=== PATIENT | female | born 1985 | race American Indian/Alaskan Native ===

== ENCOUNTER 2018-03-28 21:24 | Inpatient (IN) | payer OTHER ==
[2018-03-28] MEDS ORDERED: DIPRIVAN 10 MG/ML 1,000 MG/100 ML BOTTLE IV ONE (21:34)
[2018-03-28] MEDS: DIPRIVAN 10 MG/ML 1,000 MG/100 ML BOTTLE IV SCH (21:38)
[2018-03-28] MEDS ORDERED: ACTIDOSE-AQUA ONE (21:39)
--- NOTE | 2018-03-28 21:44 | Emergency Department Report ---
History of Present Illness - General Stated Complaint: OVERDOSE Time Seen by Provider: 03/28/18 21:25 Source: EMS Mode of arrival: Stretcher Limitations: Altered Mental Status - History of Present Illness Initial Comments: She is a 33-year-old female presents emergency room with a suicide attempt by overdose. History is per EMS. EMS states that the patient was found in a pharmacy parking lot where the patient had purchased a bottle of Aleve and 3 bottles a sleeping pill and took them on the parking lot. Pharmacy called the police and EMS. Patient vomited in the parking lot patient is unresponsive at this time. It is unknown what the reason for suicide attempt was. MD Complaint: intentional overdose -: Sudden Intent: suicide attempt Treatments Prior to Arrival: oxygen - Related Data Allergies Allergy/AdvReac Type Severity Reaction Status Date / Time No Known Allergies Allergy Unverified 03/28/18 21:41 ED Review of Systems ROS: Stated complaint: OVERDOSE Other details as noted in HPI Comment: Unobtainable due to pts medical conditions ED Past Medical Hx - Past Medical History Previous Medical History?: No - Surgical History Past Surgical History?: No - Family History Family history: no significant - Social History Smoking Status: Unknown if ever smoked Substance Use Type: Other ED Physical Exam - General Limitations: Altered Mental Status General appearance: lethargic - Head Head exam: Present: atraumatic, normocephalic - Eye Eye exam: Present: normal appearance, PERRL - ENT ENT exam: Present: mucous membranes dry, other (vomitus noted on the right side of the patient's face and head.) - Neck Neck exam: Present: normal inspection - Respiratory Respiratory exam: Present: normal lung sounds bilaterally, decreased breath sounds. Absent: respiratory distress - Cardiovascular Cardiovascular Exam: Present: regular rate, normal rhythm. Absent: systolic murmur, diastolic murmur, rubs, gallop - GI/Abdominal GI/Abdominal exam: Present: soft, normal bowel sounds - Extremities Exam Extremities exam: Present: normal inspection - Back Exam Back exam: Present: normal inspection - Neurological Exam Neurological exam: Present: altered - Expanded Neurological Exam Expanded Best Eye Response ([place]): (2) open to pain Best Motor Response ([place]): (5) localizes to pain Best Verbal Response ([place]): (1) no verbal response [place] Total: 8 - Skin Skin exam: Present: warm, dry, intact, normal color. Absent: rash ED Course Vital Signs 03/28/18 03/28/18 03/28/18 21:20 21:30 21:36 Pulse Rate 116 H 111 H 101 H Respiratory 17 22 35 H Rate Blood Pressure 130/84 130/84 127/88 O2 Sat by Pulse 99 100 100 Oximetry 03/28/18 03/28/18 03/28/18 21:46 22:00 22:15 Pulse Rate 102 H 98 H 93 H Respiratory 23 18 18 Rate Blood Pressure 127/88 115/73 109/74 O2 Sat by Pulse 99 100 Oximetry 03/28/18 03/28/18 03/28/18 22:30 22:35 22:45 Pulse Rate 89 89 90 Respiratory 18 18 18 Rate Blood Pressure 109/74 127/88 113/80 O2 Sat by Pulse 100 100 100 Oximetry 03/28/18 03/28/18 03/28/18 23:00 23:16 23:30 Pulse Rate 92 H 98 H 93 H Respiratory 19 22 16 Rate Blood Pressure 136/92 125/98 130/84 O2 Sat by Pulse 99 Oximetry 03/28/18 03/28/18 03/29/18 23:44 23:45 00:00 Pulse Rate 90 85 Respiratory 18 14 20 Rate Blood Pressure 121/75 135/92 O2 Sat by Pulse 100 100 59 L Oximetry 03/29/18 03/29/18 03/29/18 00:24 00:30 00:31 Pulse Rate 82 84 81 Respiratory 16 20 Rate Blood Pressure 121/75 142/97 O2 Sat by Pulse 93 98 Oximetry 03/29/18 03/29/18 03/29/18 00:45 01:00 01:15 Pulse Rate 86 83 80 Respiratory 20 20 19 Rate Blood Pressure 145/100 139/97 132/88 O2 Sat by Pulse 100 100 Oximetry 03/29/18 03/29/18 03/29/18 01:30 01:45 02:00 Pulse Rate 82 81 79 Respiratory 15 17 18 Rate Blood Pressure 132/88 116/81 119/79 O2 Sat by Pulse 78 L 100 Oximetry 03/29/18 05:04 Pulse Rate 84 Respiratory Rate Blood Pressure O2 Sat by Pulse 100 Oximetry - Reevaluation(s) Reevaluation #1: Patient seen immediately upon arrival to the hospital. Patient arrived via EMS. Patient is an overdose and minimally responsive. Per EMS patient took a bottle of Aleve and 3 bottles of sleep aid. Poison control be contacted. Patient is also hypoxic at 93%. We'll intubate patient to protect airway and for oxygenation. 03/28/18 21:15 Nurse contacted poison control. Recommendations received from poison control. Precautions received from poison control. See nurse's notes NAHID HOOKS Female : 1985 MedRec# [id number] 03/28/18 21:38 - Nurse Note by ANDRA MCKEON Acct Num: [id number] : 1985 Patient Age: 33 I spoke with Dash at poison control. He states to give 64gm of charcoal via ng tube. Watch out for the BP and HR to increase or decrease, the temp to increase. The patient is at a major risk for seizures,give benzos for seizures. Typical labs. Please call back with asa and tylenol levels. QRS greater than 500ms and QTC greater than 100ms. Initialized on 03/28/18 21:38 - END OF NOTE 03/28/18 21:30 Reevaluation #2: patient is still moving in the bed and has maxed on propofol. We'll order Versed 5 mg 1 and a Ativan drip 03/28/18 23:38 - Consultations Consultation #1: Hospitalist consulted for admission. Hospitalist to admit and assume care of patient. Patient to be admitted to the ICU team. 03/29/18 01:24 - Intubation Time Out Performed: Yes Sedative: Etomidate Paralytic: Succinylcholine Laryngoscope: fiberoptic video scope Size: 4 ET Tube Size: 7.5 Tube Secured Depth (cm): 22 Tube Secured Location: teeth Tube Placement Confirmation: visualized tube passing t, equal breath sounds bilat, no breath sounds over epi, confirmation by capnometr Patient Tolerated Procedure: well Intubation Complications: none ED Medical Decision Making - Lab Data Result diagrams: 03/28/18 22:03 03/28/18 22:03 - EKG Data -: EKG Interpreted by Tn EKG shows normal: sinus rhythm, axis, intervals, QRS complexes, ST-T waves Rate: normal - Radiology Data Radiology results: report reviewed FINAL REPORT EXAM: XR CHEST 1V AP HISTORY: ETT placement TECHNIQUE: Frontal portable view of the chest Comparison: None FINDINGS: The tip of the endotracheal tube is at the level of the clavicles. The tip of the esophagogastric tube is not included in the field of view but is well below the level of the diaphragm. There is no evidence of infiltrate, pneumothorax or pleural fluid collection. The cardiomediastinal silhouette is normal in appearance. The bony structures are unremarkable. IMPRESSION: 1. Tip of the endotracheal tube at the level of the clavicles. 2. Tip of the soft the esophagogastric tube is not included in the field of view but is well below the level of the diaphragm. 3. No evidence of an acute pulmonary process. Transcribed By: ED Dictated By: ANTHONY DAI MD Electronically Authenticated By: ANTHONY DAI MD Signed Date/Time: 03/28/182214 FINAL REPORT PROCEDURE: CT HEAD/BRAIN WO CON TECHNIQUE: Computerized tomography of the head was performed without contrast material. HISTORY: Overdose COMPARISON: No prior studies are available for comparison. FINDINGS: Skull and scalp: Normal. Paranasal sinuses: Normal. Ventricles and subarachnoid spaces: Normal. Cerebrum: No evidence of hemorrhage, acute infarction or mass . Cerebellum and brainstem: No evidence of hemorrhage, acute infarction or mass. Vasculature: Normal. Comments: None. IMPRESSION: Normal Examination Transcribed By: CO Dictated By: DARIEL SÁNCHEZ MD Electronically Authenticated By: DARIEL SÁNCHEZ MD Signed Date/Time: 03/29/18 0045 - Medical Decision Making She is a 33-year-old female that presented to the emergency room with overdose on Aleve and sleeping aids. Patient was intubated due to decreased responsiveness and in order to protect the patient's airway and provide oxygenation. Patient has been stable since. Patient will be admitted to the ICU team and the hospitalist service for further evaluation and treatment. Patient is aren't been placed on a 1013. Poison control recommendations are noted in the chart. - Differential Diagnosis od. ams. unresposive. Critical Care Time: Yes Critical care attestation.: If time is entered above; I have spent that time in minutes in the direct care of this critically ill patient, excluding procedure time. Critical Care Time: 45 minutes for cc time ED Disposition Clinical Impression: Overdose, Unresponsive Disposition: OP ADMIT IP TO THIS HOSP Is pt being admited?: Yes Does the pt Need Aspirin: No Condition: Critical Time of Disposition: 01:26
[2018-03-28] MEDS ORDERED: ACTIDOSE-AQUA PO ONE (21:55)
[2018-03-28] MEDS ORDERED: NACL 0.9% 1000 ML 1,000 ML IV ONE (21:55)
[2018-03-28] MEDS ORDERED: VASELINE LIP THERAPY TP PRN (21:58)
[2018-03-28] MEDS ORDERED: ARTIFICIAL TEARS OPHTH OINT OU PRN (21:58)
[2018-03-28] MEDS ORDERED: NACL 0.9% 500 ML IV SCH (22:00)
--- NOTE | 2018-03-28 22:16 | XRay Report ---
FINAL REPORT EXAM: XR CHEST 1V AP HISTORY: ETT placement TECHNIQUE: Frontal portable view of the chest Comparison: None FINDINGS: The tip of the endotracheal tube is at the level of the clavicles. The tip of the esophagogastric tube is not included in the field of view but is well below the level of the diaphragm. There is no evidence of infiltrate, pneumothorax or pleural fluid collection. The cardiomediastinal silhouette is normal in appearance. The bony structures are unremarkable. IMPRESSION: 1. Tip of the endotracheal tube at the level of the clavicles. 2. Tip of the soft the esophagogastric tube is not included in the field of view but is well below the level of the diaphragm. 3. No evidence of an acute pulmonary process.
[2018-03-28 22:35] LABS: Basophils % (Auto) 0.4 % (0.0-1.8); Eosinophils # (Auto) 0.3 K/mm3 (0.0-0.4); Hematocrit 33.3 % (30.3-42.9); Hemoglobin 11.1 gm/dl (10.1-14.3); Lymphocytes # (Auto) 1.2 K/mm3 (1.2-5.4); Mean Corpuscular HGB Conc 33 % (30-34); Mean Corpuscular Hemoglobin 29 pg (28-32); Mean Corpuscular Volume 87 fl (79-97); Monocytes # (Auto) 0.7 K/mm3 (0.0-0.8); Monocytes % (Auto) 5.2 % (0.0-7.3); Platelet Count 355 K/mm3 (140-440); Red Blood Count 3.85 M/mm3 (3.65-5.03); Red Cell Distribution Width 14.6 % (13.2-15.2)
[2018-03-28 22:49] LABS: HCG Qualitative,Urine Negative (Negative)
[2018-03-28 22:51] LABS: Bilirubin,Urine NEG (Negative); Blood,Urine NEG (Negative); Color,Urine Yellow (Yellow); Mucus,Urine FEW /HPF; Urobilinogen,Urine < 2.0 mg/dL (<2.0)
[2018-03-28 22:55] LABS: Alanine Aminotransferase 12 units/L (7-56); Albumin 3.9 g/dL (3.9-5); BUN/Creatinine Ratio 18; Blood Urea Nitrogen 14 mg/dL (7-17); Calcium 8.9 mg/dL (8.4-10.2); Hemolysis Index 23
[2018-03-28 22:59] LABS: Amphetamine Screen,Urine PRESUMPTIVE NEGATIVE; Benzodiazepines Screen,Urine PRESUMPTIVE NEGATIVE; Cocaine Screen,Urine PRESUMPTIVE NEGATIVE; Methadone Screen,Urine PRESUMPTIVE NEGATIVE; Opiate Screen,Urine PRESUMPTIVE NEGATIVE
[2018-03-28 23:21] LABS: Cannabinoid Screen,Urine PRESUMPTIVE POSITIVE
[2018-03-28] MEDS ORDERED: VERSED IV NR (23:45)
[2018-03-28] MEDS ORDERED: ATIVAN 100 MG in NACL 0.9% 50 ML, VIAFLEX EMPTY CONTAINER 0 ML IV SCH (23:45)
--- NOTE | 2018-03-29 00:46 | Cat Scan Report ---
FINAL REPORT PROCEDURE: CT HEAD/BRAIN WO CON TECHNIQUE: Computerized tomography of the head was performed without contrast material. HISTORY: Overdose COMPARISON: No prior studies are available for comparison. FINDINGS: Skull and scalp: Normal. Paranasal sinuses: Normal. Ventricles and subarachnoid spaces: Normal. Cerebrum: No evidence of hemorrhage, acute infarction or mass . Cerebellum and brainstem: No evidence of hemorrhage, acute infarction or mass. Vasculature: Normal. Comments: None. IMPRESSION: Normal Examination
[2018-03-29] MEDS ORDERED: TYLENOL FEEDTUBE PRN (02:25)
[2018-03-29] MEDS ORDERED: ZOFRAN IV PRN (02:25)
[2018-03-29] MEDS ORDERED: TYLENOL PR PRN (02:25)
[2018-03-29] MEDS ORDERED: SODIUM CHLORIDE FLUSH SYRINGE 10 ML IV PRN (02:25)
[2018-03-29] MEDS ORDERED: NS/KCL 20MEQ 20 MEQ/1,000 ML BAG IV SCH (03:00)
[2018-03-29] MEDS: KCL 10MEQ/100ML 10 MEQ/100 ML BAG IV SCH ×2 (03:28→06:29)
--- NOTE | 2018-03-29 03:36 | History and Physical Report ---
History of Present Illness Date of examination: 03/29/18 Date of admission: 03/29/18 Chief complaint: Drug overdose per report History of present illness: Patient is a 23-year-old -[place] female who was brought to the ED via EMS on account of drug overdose. It was reported that the patient overdosed on a bottle of aleve and 3 bottles of sleeping pills. She was found at the pharmacy parking lot unresponsive. In the ED, she was intubated for airway protection. Past History Past Medical History: other (could not be obtained because patient is intubated and sedated) Past Surgical History: Other (could not be obtained because patient is intubated and sedated) Social history: other (could not be obtained because patient is intubated and sedated) Family history: other (could not be obtained because patient is intubated and sedated) Medications and Allergies Allergies Allergy/AdvReac Type Severity Reaction Status Date / Time No Known Allergies Allergy Unverified 03/28/18 21:41 Active Meds: Active Medications Acetaminophen (Tylenol) 650 mg MS Q6H PRN PRN Reason: Fever >101 Acetaminophen (Tylenol) 650 mg FEEDTUBE Q6H PRN PRN Reason: Pain MILD(1-3)/Fever >100.5/JANG Enoxaparin Sodium (Lovenox) 40 mg SUB-Q QDAY JASON Hydrophilic Ointment (Vaseline Lip Therapy) 1 applic TP Q2HR PRN PRN Reason: Dry Lips Propofol (Diprivan 10 Mg/Ml) 1,000 mg in 100 mls @ 1.905 mls/hr IV TITR JASON; Protocol Last Titration: 03/28/18 22:10 Dose: 30 mcg/kg/min, 11.431 mls/hr Lorazepam 100 mg/ Sodium Chloride/ Miscellaneous Information 100 mls @ 1 mls/ hr IV TITR JASON; Protocol Last Titration: 03/29/18 02:09 Dose: 3 mg/hr, 3 mls/hr Potassium Chloride/Sodium Chloride (Ns/Kcl 20meq) 20 meq in 1,000 mls @ 100 mls /hr IV DIRECT JASON Potassium Chloride (Kcl 10meq/100ml) 10 meq in 100 mls @ 100 mls/hr IV Q1H JASON Stop: 03/29/18 04:59 Midazolam HCl (Versed) 5 mg IV ONCE NR Stop: 03/29/18 23:44 Multi-Ingred Cream/Lotion/Oil/Oint (Artificial Tears Ophth Oint) 1 applic OU Q4HR PRN PRN Reason: Dry Eye(s) Ondansetron HCl (Zofran) 4 mg IV Q8H PRN PRN Reason: Nausea And Vomiting Sodium Chloride (Nacl 0.9% 500 Ml) 1 ml IV DIRECT JASON Sodium Chloride (Sodium Chloride Flush Syringe 10 Ml) 10 ml IV BID JASON Sodium Chloride (Sodium Chloride Flush Syringe 10 Ml) 10 ml IV PRN PRN PRN Reason: LINE FLUSH Review of Systems ROS unobtainable: due to endotracheal tube Exam - Constitutional Vitals: Temp Pulse Resp BP Pulse Ox 79 18 119/79 100 03/29/18 02:00 03/29/18 02:00 03/29/18 02:00 03/29/18 01:45 General appearance: Present: no acute distress, other (patient is intubated and sedated) - EENT Eyes: Present: PERRL ENT: other (patient is intubated) - Neck Neck: Present: supple - Respiratory Respiratory effort: normal Respiratory: bilateral: CTA - Cardiovascular Rhythm: regular Heart Sounds: Present: S1 & S2 - Extremities Extremities: pulses symmetrical, No edema - Abdominal General gastrointestinal: Present: soft, non-tender, non-distended, normal bowel sounds - Integumentary Integumentary: Present: clear, warm, dry - Neurologic Neurologic: other (patient is intubated and sedated) Results - Labs CBC & Chem 7: 03/28/18 22:03 03/28/18 22:03 Labs: Laboratory Last Values WBC 13.5 K/mm3 (4.5-11.0) H 03/28/18 22:03 RBC 3.85 M/mm3 (3.65-5.03) 03/28/18 22:03 Hgb 11.1 gm/dl (10.1-14.3) 03/28/18 22:03 Hct 33.3 % (30.3-42.9) 03/28/18 22:03 MCV 87 fl (79-97) 03/28/18 22:03 MCH 29 pg (28-32) 03/28/18 22:03 MCHC 33 % (30-34) 03/28/18 22:03 RDW 14.6 % (13.2-15.2) 03/28/18 22:03 Plt Count 355 K/mm3 (140-440) 03/28/18 22:03 Lymph % (Auto) 9.0 % (13.4-35.0) L 03/28/18 22:03 Saline % (Auto) 5.2 % (0.0-7.3) 03/28/18 22:03 Eos % (Auto) 2.0 % (0.0-4.3) 03/28/18 22:03 Baso % (Auto) 0.4 % (0.0-1.8) 03/28/18 22:03 Lymph # 1.2 K/mm3 (1.2-5.4) 03/28/18 22:03 Saline # 0.7 K/mm3 (0.0-0.8) 03/28/18 22:03 Eos # 0.3 K/mm3 (0.0-0.4) 03/28/18 22:03 Baso # 0.0 K/mm3 (0.0-0.1) 03/28/18 22:03 Seg Neutrophils % 83.4 % (40.0-70.0) H 03/28/18 22:03 Seg Neutrophils # 11.2 K/mm3 (1.8-7.7) H 03/28/18 22:03 POC ABG pH 7.371 (7.35-7.45) 03/28/18 23:20 POC ABG pCO2 38.5 (35-45) 03/28/18 23:20 POC ABG pO2 173 (80-105) H 03/28/18 23:20 POC ABG HCO3 22.3 03/28/18 23:20 POC ABG Total CO2 23 03/28/18 23:20 POC ABG O2 Sat 100 03/28/18 23:20 POC ABG Base Excess -3 03/28/18 23:20 FiO2 30 % 03/28/18 23:20 Sodium 136 mmol/L (137-145) L 03/28/18 22:03 Potassium 3.2 mmol/L (3.6-5.0) L 03/28/18 22:03 Chloride 99.8 mmol/L (98-107) 03/28/18 22:03 Carbon Dioxide 20 mmol/L (22-30) L 03/28/18 22:03 Anion Gap 19 mmol/L 03/28/18 22:03 BUN 14 mg/dL (7-17) 03/28/18 22:03 Creatinine 0.8 mg/dL (0.7-1.2) 03/28/18 22:03 Estimated GFR > 60 ml/min 03/28/18 22:03 BUN/Creatinine Ratio 18 % 03/28/18 22:03 Glucose 86 mg/dL (65-100) 03/28/18 22:03 Calcium 8.9 mg/dL (8.4-10.2) 03/28/18 22:03 Magnesium 1.60 mg/dL (1.7-2.3) L 03/29/18 22:03 Total Bilirubin 0.20 mg/dL (0.1-1.2) 03/28/18 22:03 AST 23 units/L (5-40) 03/28/18 22:03 ALT 12 units/L (7-56) 03/28/18 22:03 Alkaline Phosphatase 83 units/L (35-129) 03/28/18 22:03 Total Protein 7.7 g/dL (6.3-8.2) 03/28/18 22:03 Albumin 3.9 g/dL (3.9-5) 03/28/18 22:03 Albumin/Globulin Ratio 1.0 % 03/28/18 22:03 Urine Color Yellow (Yellow) 03/28/18 22:31 Urine Turbidity Slightly-cloudy (Clear) 03/28/18 22:31 Urine pH 5.0 (5.0-7.0) 03/28/18 22:31 Ur Specific [place] 1.019 (1.003-1.030) 03/28/18 22:31 Urine Protein 100 mg/dl mg/dL (Negative) 03/28/18 22:31 Urine Glucose (UA) Neg mg/dL (Negative) 03/28/18 22:31 Urine Ketones 20 mg/dL (Negative) 03/28/18 22:31 Urine Blood Neg (Negative) 03/28/18 22:31 Urine Nitrite Neg (Negative) 03/28/18 22:31 Ur Reducing Substances Not Reportable 03/28/18 22:31 Urine Bilirubin Neg (Negative) 03/28/18 22:31 Urine Ictotest Not Reportable 03/28/18 22:31 Urine Urobilinogen < 2.0 mg/dL (<2.0) 03/28/18 22:31 Ur Leukocyte Esterase Neg (Negative) 03/28/18 22:31 Urine WBC (Auto) 2.0 /HPF (0.0-6.0) 03/28/18 22:31 Urine RBC (Auto) 3.0 /HPF (0.0-6.0) 03/28/18 22:31 U Epithel Cells (Auto) 1.0 /HPF (0-13.0) 03/28/18 22:31 Urine Mucus Few /HPF 03/28/18 22:31 Urine HCG, Qual Negative (Negative) 03/28/18 22:31 Salicylates < 0.3 mg/dL (2.8-20.0) L 03/28/18 22:03 Urine Opiates Screen Presumptive negative 03/28/18 22:31 Urine Methadone Screen Presumptive negative 03/28/18 22:31 Acetaminophen < 5.0 ug/mL (10.0-30.0) L 03/28/18 22:03 Ur Barbiturates Screen Presumptive negative 03/28/18 22:31 Ur Phencyclidine Scrn Presumptive negative 03/28/18 22:31 Ur Amphetamines Screen Presumptive negative 03/28/18 22:31 U Benzodiazepines Scrn Presumptive negative 03/28/18 22:31 Urine Cocaine Screen Presumptive negative 03/28/18 22:31 U Marijuana (THC) Screen Presumptive positive 03/28/18 22:31 Drugs of Abuse Note Disclamer 03/28/18 22:31 Plasma/Serum Alcohol < 0.01 % (0-0.07) 03/28/18 22:03 Assessment and Plan Assessment and plan: Acute toxic encephalopathy secondary to drug overdose -Head CT scan negative -Patient intubated for airway protection -We will monitor clinically Drug overdose with Aleve and sleeping pills -S/p activated charcoal and on benzo drip for seizure prophylaxis as recommended by poison control -Salicylates and acetaminophen levels normal -Patient placed on 1013 -She would need psych evaluation when medically stable SIRS without acute infection -Will monitor WBC level Hypokalemia and hypomagnesemia -We will replete potassium and magnesium -Will monitor levels Prophylaxis -DVT prophylaxis with Lovenox and GI prophylaxis with Protonix I spent 45 minutes providing critical care to this seriously ill patient who requires frequent reassessments of her respiratory status Disposition: Discharge will depend on clinical course
[2018-03-29] MEDS ORDERED: MAGNESIUM SULFATE 2GM/50ML 2 GM/50 ML BAG IV ONE (03:44)
[2018-03-29] MEDS: DIPRIVAN 10 MG/ML 1,000 MG/100 ML BOTTLE IV SCH ×2 (08:30→15:16)
[2018-03-29] MEDS ORDERED: QUELICIN ONE (12:00)
[2018-03-29] MEDS ORDERED: AMIDATE IV ONE (12:00)
--- NOTE | 2018-03-29 12:41 | Event Note ---
Date: 03/29/18 Patient is a 23-year-old -[place]ian female who was brought to the ED via EMS on account of drug overdose. Patient seen and examined Will cont current mx and plan as dictated in H and p.
[2018-03-29] MEDS: LOVENOX SUB-Q SCH (13:45)
[2018-03-29] MEDS: SODIUM CHLORIDE FLUSH SYRINGE 10 ML IV SCH ×2 (13:45→22:59)
[2018-03-29] MEDS: PROTONIX IV SCH ×2 (13:45→22:59)
[2018-03-29] MEDS: D5W/0.45% NACL/KCL 20 MEQ 20 MEQ/1,000 ML BAG IV SCH ×2 (13:45→22:59)
--- NOTE | 2018-03-29 14:46 | XRay Report ---
FINAL REPORT PROCEDURE: XR CHEST 1V AP TECHNIQUE: Chest radiograph anteroposterior view. CPT 50712 HISTORY: follow up respiratory failure COMPARISON: Prior chest x-ray 03/28/2018 FINDINGS: Heart: Normal size. Mediastinum/Vessels: Normal. Lungs/Pleural space: Clear. Bony thorax: No acute osseous abnormality. Life support devices: NG tube is seen directed into the left side of the stomach and appears to be in good position. Endotracheal tube also in place. The tip lies 3.7 centimeters above the venkat.. IMPRESSION: Support lines in good position. No evidence of acute cardiac or pulmonary process..
--- NOTE | 2018-03-29 16:40 | Consultation ---
History of Present Illness Consult date: 03/29/18 Requesting physician: JUAN LOVELL Reason for consult: other (Acute Respiratory Failure; Drug OD) History of present illness: PULMONARY/CCM CONSULT NOTE (Full dictation # [id number]) Please see dictated notes for full details Past History Past Medical History: other (could not be obtained because patient is intubated and sedated) Past Surgical History: Other (could not be obtained because patient is intubated and sedated) Social history: other (could not be obtained because patient is intubated and sedated) Family history: other (could not be obtained because patient is intubated and sedated) Medications and Allergies Allergies Allergy/AdvReac Type Severity Reaction Status Date / Time No Known Allergies Allergy Unverified 03/28/18 21:41 Active Meds: Active Medications Acetaminophen (Tylenol) 650 mg MN Q6H PRN PRN Reason: Fever >101 Acetaminophen (Tylenol) 650 mg FEEDTUBE Q6H PRN PRN Reason: Pain MILD(1-3)/Fever >100.5/JANG Enoxaparin Sodium (Lovenox) 40 mg SUB-Q QDAY JASON Last Admin: 03/29/18 13:45 Dose: 40 mg Hydrophilic Ointment (Vaseline Lip Therapy) 1 applic TP Q2HR PRN PRN Reason: Dry Lips Propofol (Diprivan 10 Mg/Ml) 1,000 mg in 100 mls @ 1.905 mls/hr IV TITR JASON; Protocol Last Admin: 03/29/18 15:16 Dose: 50 mcg/kg/min, 19.051 mls/hr Lorazepam 100 mg/ Sodium Chloride/ Miscellaneous Information 100 mls @ 1 mls/ hr IV TITR JASON; Protocol Last Titration: 03/29/18 15:21 Dose: 0 mg/hr, 0 mls/hr Potassium Chloride/Dextrose/Sod Cl (D5w/0.45% Nacl/Kcl 20 Meq) 20 meq in 1,000 mls @ 125 mls/hr IV DIRECT JASON Last Admin: 03/29/18 13:45 Dose: 125 mls/hr Insulin Human Regular (Humulin R) 0 units SUB-Q ACHS JASON; Protocol Midazolam HCl (Versed) 5 mg IV ONCE NR Stop: 03/29/18 23:44 Multi-Ingred Cream/Lotion/Oil/Oint (Artificial Tears Ophth Oint) 1 applic OU Q4HR PRN PRN Reason: Dry Eye(s) Ondansetron HCl (Zofran) 4 mg IV Q8H PRN PRN Reason: Nausea And Vomiting Pantoprazole Sodium (Protonix) 40 mg IV BID [facility] Last Admin: 03/29/18 13:45 Dose: 40 mg Sodium Chloride (Nacl 0.9% 500 Ml) 1 ml IV DIRECT JASON Sodium Chloride (Sodium Chloride Flush Syringe 10 Ml) 10 ml IV BID [facility] Last Admin: 03/29/18 13:45 Dose: 10 ml Sodium Chloride (Sodium Chloride Flush Syringe 10 Ml) 10 ml IV PRN PRN PRN Reason: LINE FLUSH Physical Examination Vital signs: Vital Signs Pulse Resp BP Pulse Ox 116 H 17 130/84 99 03/28/18 21:20 03/28/18 21:20 03/28/18 21:20 03/28/18 21:20 Results - Laboratory Findings CBC and BMP: 03/30/18 05:45 03/30/18 05:45 ABG POC ABG pH 7.388 (7.35-7.45) 03/29/18 04:59 POC ABG pCO2 38.2 (35-45) 03/29/18 04:59 POC ABG pO2 124 (80-105) H 03/29/18 04:59 POC ABG HCO3 23.0 03/29/18 04:59 POC ABG Total CO2 24 03/29/18 04:59 POC ABG O2 Sat 99 03/29/18 04:59 Abnormal lab findings: Abnormal Labs 03/28/18 03/28/18 03/28/18 22:03 22:03 22:03 WBC 13.5 H Lymph % (Auto) 9.0 L Seg Neutrophils % 83.4 H Seg Neutrophils # 11.2 H POC ABG pO2 Sodium 136 L Potassium 3.2 L Carbon Dioxide 20 L POC Glucose Magnesium Salicylates < 0.3 L Acetaminophen 03/28/18 03/28/18 03/29/18 22:03 23:20 04:59 WBC Lymph % (Auto) Seg Neutrophils % Seg Neutrophils # POC ABG pO2 173 H 124 H Sodium Potassium Carbon Dioxide POC Glucose Magnesium Salicylates Acetaminophen < 5.0 L 03/29/18 03/29/18 16:15 22:03 WBC Lymph % (Auto) Seg Neutrophils % Seg Neutrophils # POC ABG pO2 Sodium Potassium Carbon Dioxide POC Glucose 111 H Magnesium 1.60 L Salicylates Acetaminophen
[2018-03-29] MEDS ORDERED: fentaNYL DRIP Premix 2,000 MCG/100 ML BAG IV SCH (17:00)
[2018-03-29] MEDS: HumuLIN R SUB-Q SCH ×2 (19:29→23:37)
[2018-03-29 21:27] LABS: Amphetamine Screen,Urine PRESUMPTIVE NEGATIVE; Cocaine Screen,Urine PRESUMPTIVE NEGATIVE; Methadone Screen,Urine PRESUMPTIVE NEGATIVE; Opiate Screen,Urine PRESUMPTIVE NEGATIVE
[2018-03-29 21:54] LABS: Benzodiazepines Screen,Urine PRESUMPTIVE POSITIVE; Cannabinoid Screen,Urine PRESUMPTIVE POSITIVE
--- NOTE | 2018-03-30 03:06 | XRay Report ---
FINAL REPORT EXAM: XR CHEST 1V AP HISTORY: follow up respiratory failure COMPARISON: March 29, 2018 FINDINGS: Frontal view(s) of the chest obtained. Heart upper limits normal in size. Stable positioning of ET tube and NG tube. Lungs are grossly clear. No pneumothorax. IMPRESSION: Lungs are grossly clear. ETT and NG tube are grossly unchanged in position.
[2018-03-30 05:58] LABS: Basophils % (Auto) 0.3 % (0.0-1.8); Eosinophils # (Auto) 0.3 K/mm3 (0.0-0.4); Eosinophils % (Auto) 2.5 % (0.0-4.3); Hematocrit 30.7 % (30.3-42.9); Lymphocytes # (Auto) 1.8 K/mm3 (1.2-5.4); Mean Corpuscular HGB Conc 33 % (30-34); Mean Corpuscular Hemoglobin 29 pg (28-32); Mean Corpuscular Volume 87 fl (79-97); Monocytes # (Auto) 1.4 K/mm3 (0.0-0.8); Monocytes % (Auto) 12.8 % (0.0-7.3); Platelet Count 289 K/mm3 (140-440); Red Blood Count 3.51 M/mm3 (3.65-5.03); Red Cell Distribution Width 14.9 % (13.2-15.2)
[2018-03-30 06:31] LABS: BUN/Creatinine Ratio 10; Blood Urea Nitrogen 7 mg/dL (7-17); Hemolysis Index 0
[2018-03-30] MEDS: D5W/0.45% NACL/KCL 20 MEQ 20 MEQ/1,000 ML BAG IV SCH ×2 (07:08→22:16)
[2018-03-30] MEDS ORDERED: POTASSIUM CHLORIDE FEEDTUBE ONE ×2 (08:52→12:00)
[2018-03-30] MEDS ORDERED: MAGNESIUM SULFATE 2GM/50ML 2 GM/50 ML BAG IV ONE (09:01)
--- NOTE | 2018-03-30 09:11 | Progress Note ---
<FLORIAN RICHARDSON - Last Filed: 03/30/18 09:16> Assessment and Plan Assessment and plan: 1. Acute toxic encephalopathy secondary to drug overdose -Patient intubated for airway protection -We will monitor clinically 2. Drug overdose (OCT Aleve and sleeping pills) -S/p activated charcoal and on benzo drip for seizure prophylaxis as recommended by poison control -Salicylates and acetaminophen levels normal -Patient placed on 1013 -She would need psych evaluation when medically stable 3. SIRS without acute infection -Continue to monitor -WBC level WNL -Afebrile 4. Hypokalemia and hypomagnesemia -Replace potassium and magnesium - Recheck levels 2 hr after administration -Continue DVT prophylaxis -Continue to monitor progress - Supportive care The high probability of a clinically significant, sudden or life threatening deterioration of the [] system(s) required my full and direct attention, intervention and personal management. The aggregate critical care time was [35] minutes. This time is in addition to time spent performing reported procedures but includes the following: [x] Data Review and interpretation [x] Patient assessment and monitoring of vital signs [x] Documentation [x] Medication orders and managementContinue GI prophylaxis History Interval history: Pt is intubated and sedated, open eyes with stimulation Hospitalist Physical - Constitutional Vitals: Temp Pulse Resp BP Pulse Ox 84 16 104/58 100 03/30/18 07:36 03/30/18 07:00 03/30/18 07:36 03/30/18 07:36 General appearance: Present: no acute distress, other (patient is intubated and sedated) Results - Labs CBC & Chem 7: 03/30/18 05:45 03/30/18 05:45 Labs: Laboratory Last Values WBC 10.5 K/mm3 (4.5-11.0) 03/30/18 05:45 RBC 3.51 M/mm3 (3.65-5.03) L 03/30/18 05:45 Hgb 10.0 gm/dl (10.1-14.3) L 03/30/18 05:45 Hct 30.7 % (30.3-42.9) 03/30/18 05:45 MCV 87 fl (79-97) 03/30/18 05:45 MCH 29 pg (28-32) 03/30/18 05:45 MCHC 33 % (30-34) 03/30/18 05:45 RDW 14.9 % (13.2-15.2) 03/30/18 05:45 Plt Count 289 K/mm3 (140-440) 03/30/18 05:45 Lymph % (Auto) 17.0 % (13.4-35.0) 03/30/18 05:45 [place] % (Auto) 12.8 % (0.0-7.3) H 03/30/18 05:45 Eos % (Auto) 2.5 % (0.0-4.3) 03/30/18 05:45 Baso % (Auto) 0.3 % (0.0-1.8) 03/30/18 05:45 Lymph # 1.8 K/mm3 (1.2-5.4) 03/30/18 05:45 [place] # 1.4 K/mm3 (0.0-0.8) H 03/30/18 05:45 Eos # 0.3 K/mm3 (0.0-0.4) 03/30/18 05:45 Baso # 0.0 K/mm3 (0.0-0.1) 03/30/18 05:45 Seg Neutrophils % 67.4 % (40.0-70.0) 03/30/18 05:45 Seg Neutrophils # 7.1 K/mm3 (1.8-7.7) 03/30/18 05:45 POC ABG pH 7.371 (7.35-7.45) 03/29/18 19:31 POC ABG pCO2 38.5 (35-45) 03/29/18 19:31 POC ABG pO2 115 (80-105) H 03/29/18 19:31 POC ABG HCO3 22.3 03/29/18 19:31 POC ABG Total CO2 23 03/29/18 19:31 POC ABG O2 Sat 98 03/29/18 19:31 POC ABG Base Excess -3 03/29/18 19:31 FiO2 25 % 03/29/18 19:31 Sodium 138 mmol/L (137-145) 03/30/18 05:45 Potassium 3.7 mmol/L (3.6-5.0) 03/30/18 05:45 Chloride 104.7 mmol/L (98-107) 03/30/18 05:45 Carbon Dioxide 22 mmol/L (22-30) 03/30/18 05:45 Anion Gap 15 mmol/L 03/30/18 05:45 BUN 7 mg/dL (7-17) 03/30/18 05:45 Creatinine 0.7 mg/dL (0.7-1.2) 03/30/18 05:45 Estimated GFR > 60 ml/min 03/30/18 05:45 BUN/Creatinine Ratio 10 % 03/30/18 05:45 Glucose 129 mg/dL (65-100) H 03/30/18 05:45 POC Glucose 111 (70-105) H 03/29/18 16:15 Calcium 8.0 mg/dL (8.4-10.2) L 03/30/18 05:45 Magnesium 1.60 mg/dL (1.7-2.3) L 03/30/18 05:45 Total Bilirubin 0.20 mg/dL (0.1-1.2) 03/28/18 22:03 AST 23 units/L (5-40) 03/28/18 22:03 ALT 12 units/L (7-56) 03/28/18 22:03 Alkaline Phosphatase 83 units/L (35-129) 03/28/18 22:03 Total Protein 7.7 g/dL (6.3-8.2) 03/28/18 22:03 Albumin 3.9 g/dL (3.9-5) 03/28/18 22:03 Albumin/Globulin Ratio 1.0 % 03/28/18 22:03 Urine Color Yellow (Yellow) 03/28/18 22:31 Urine Turbidity Slightly-cloudy (Clear) 03/28/18 22:31 Urine pH 5.0 (5.0-7.0) 03/28/18 22:31 Ur Specific [place] 1.019 (1.003-1.030) 03/28/18 22:31 Urine Protein 100 mg/dl mg/dL (Negative) 03/28/18 22:31 Urine Glucose (UA) Neg mg/dL (Negative) 03/28/18 22:31 Urine Ketones 20 mg/dL (Negative) 03/28/18 22:31 Urine Blood Neg (Negative) 03/28/18 22:31 Urine Nitrite Neg (Negative) 03/28/18 22:31 Ur Reducing Substances Not Reportable 03/28/18 22:31 Urine Bilirubin Neg (Negative) 03/28/18 22:31 Urine Ictotest Not Reportable 03/28/18 22:31 Urine Urobilinogen < 2.0 mg/dL (<2.0) 03/28/18 22:31 Ur Leukocyte Esterase Neg (Negative) 03/28/18 22:31 Urine WBC (Auto) 2.0 /HPF (0.0-6.0) 03/28/18 22:31 Urine RBC (Auto) 3.0 /HPF (0.0-6.0) 03/28/18 22:31 U Epithel Cells (Auto) 1.0 /HPF (0-13.0) 03/28/18 22:31 Urine Mucus Few /HPF 03/28/18 22:31 Urine HCG, Qual Negative (Negative) 03/28/18 22:31 Salicylates < 0.3 mg/dL (2.8-20.0) L 03/28/18 22:03 Urine Opiates Screen Presumptive negative 03/29/18 21:05 Urine Methadone Screen Presumptive negative 03/29/18 21:05 Acetaminophen < 5.0 ug/mL (10.0-30.0) L 03/28/18 22:03 Ur Barbiturates Screen Presumptive negative 03/29/18 21:05 Ur Phencyclidine Scrn Presumptive negative 03/29/18 21:05 Ur Amphetamines Screen Presumptive negative 03/29/18 21:05 U Benzodiazepines Scrn Presumptive positive 03/29/18 21:05 Urine Cocaine Screen Presumptive negative 03/29/18 21:05 U Marijuana (THC) Screen Presumptive positive 03/29/18 21:05 Drugs of Abuse Note Disclamer 03/29/18 21:05 Plasma/Serum Alcohol < 0.01 % (0-0.07) 03/28/18 22:03 <WANDER DAO - Last Filed: 03/31/18 08:56> Assessment and Plan Assessment and plan: I saw and evaluated the patient. I agree with the findings and the plan of care as documented in the Nurse Practitioner's~note, with the following corrections and additions. late entery. Patient seen and examined on 03/30/18. Family at bedside. Discussed past hx of suicidal attempt when patient was 14th. No pysch visits since that time. Hospitalist Physical - Constitutional Vitals: Temp Pulse Resp BP Pulse Ox 98.6 F 100 H 25 H 129/75 100 03/30/18 16:00 03/31/18 07:00 03/31/18 07:00 03/31/18 07:00 03/31/18 07:06 Results - Labs CBC & Chem 7: 03/30/18 05:45 03/30/18 05:45 Labs: Laboratory Last Values WBC 10.5 K/mm3 (4.5-11.0) 03/30/18 05:45 RBC 3.51 M/mm3 (3.65-5.03) L 03/30/18 05:45 Hgb 10.0 gm/dl (10.1-14.3) L 03/30/18 05:45 Hct 30.7 % (30.3-42.9) 03/30/18 05:45 MCV 87 fl (79-97) 03/30/18 05:45 MCH 29 pg (28-32) 03/30/18 05:45 MCHC 33 % (30-34) 03/30/18 05:45 RDW 14.9 % (13.2-15.2) 03/30/18 05:45 Plt Count 289 K/mm3 (140-440) 03/30/18 05:45 Lymph % (Auto) 17.0 % (13.4-35.0) 03/30/18 05:45 [place] % (Auto) 12.8 % (0.0-7.3) H 03/30/18 05:45 Eos % (Auto) 2.5 % (0.0-4.3) 03/30/18 05:45 Baso % (Auto) 0.3 % (0.0-1.8) 03/30/18 05:45 Lymph # 1.8 K/mm3 (1.2-5.4) 03/30/18 05:45 [place] # 1.4 K/mm3 (0.0-0.8) H 03/30/18 05:45 Eos # 0.3 K/mm3 (0.0-0.4) 03/30/18 05:45 Baso # 0.0 K/mm3 (0.0-0.1) 03/30/18 05:45 Seg Neutrophils % 67.4 % (40.0-70.0) 03/30/18 05:45 Seg Neutrophils # 7.1 K/mm3 (1.8-7.7) 03/30/18 05:45 POC ABG pH 7.349 (7.35-7.45) L 03/30/18 13:31 POC ABG pCO2 41.3 (35-45) 03/30/18 13:31 POC ABG pO2 84 (80-105) 03/30/18 13:31 POC ABG HCO3 22.7 03/30/18 13:31 POC ABG Total CO2 24 03/30/18 13:31 POC ABG O2 Sat 96 03/30/18 13:31 POC ABG Base Excess -3 03/30/18 13:31 FiO2 25 % 03/30/18 13:31 Sodium 138 mmol/L (137-145) 03/30/18 05:45 Potassium 3.7 mmol/L (3.6-5.0) 03/30/18 05:45 Chloride 104.7 mmol/L (98-107) 03/30/18 05:45 Carbon Dioxide 22 mmol/L (22-30) 03/30/18 05:45 Anion Gap 15 mmol/L 03/30/18 05:45 BUN 7 mg/dL (7-17) 03/30/18 05:45 Creatinine 0.7 mg/dL (0.7-1.2) 03/30/18 05:45 Estimated GFR > 60 ml/min 03/30/18 05:45 BUN/Creatinine Ratio 10 % 03/30/18 05:45 Glucose 129 mg/dL (65-100) H 03/30/18 05:45 POC Glucose 122 (70-105) H 03/30/18 11:22 Calcium 8.0 mg/dL (8.4-10.2) L 03/30/18 05:45 Magnesium 1.60 mg/dL (1.7-2.3) L 03/30/18 05:45 Total Bilirubin 0.20 mg/dL (0.1-1.2) 03/28/18 22:03 AST 23 units/L (5-40) 03/28/18 22:03 ALT 12 units/L (7-56) 03/28/18 22:03 Alkaline Phosphatase 83 units/L (35-129) 03/28/18 22: Total Protein 7.7 g/dL (6.3-8.2) 03/28/18 22: Albumin 3.9 g/dL (3.9-5) 03/28/18 22: Albumin/Globulin Ratio 1.0 % 03/28/18 22:03 Urine Color Yellow (Yellow) 03/28/18 22: Urine Turbidity Slightly-cloudy (Clear) 03/28/18 22: Urine pH 5.0 (5.0-7.0) 03/28/18 22: Ur Specific [place] 1.019 (1.003-1.030) 03/28/18 22: Urine Protein 100 mg/dl mg/dL (Negative) 03/28/18 22: Urine Glucose (UA) Neg mg/dL (Negative) 03/28/18 22: Urine Ketones 20 mg/dL (Negative) 03/28/18 22: Urine Blood Neg (Negative) 03/28/18 22: Urine Nitrite Neg (Negative) 03/28/18 22: Ur Reducing Substances Not Reportable 03/28/18 22: Urine Bilirubin Neg (Negative) 03/28/18 22: Urine Ictotest Not Reportable 03/28/18 22: Urine Urobilinogen < 2.0 mg/dL (<2.0) 03/28/18 22:31 Ur Leukocyte Esterase Neg (Negative) 03/28/18 22:31 Urine WBC (Auto) 2.0 /HPF (0.0-6.0) 03/28/18 22: Urine RBC (Auto) 3.0 /HPF (0.0-6.0) 03/28/18 22: U Epithel Cells (Auto) 1.0 /HPF (0-13.0) 03/28/18 22: Urine Mucus Few /HPF 03/28/18 22: Urine HCG, Qual Negative (Negative) 03/28/18 22: Salicylates < 0.3 mg/dL (2.8-20.0) L 03/28/18 22:03 Urine Opiates Screen Presumptive negative 03/29/18 21:05 Urine Methadone Screen Presumptive negative 03/29/18 21:05 Acetaminophen < 5.0 ug/mL (10.0-30.0) L 03/28/18 22:03 Ur Barbiturates Screen Presumptive negative 03/29/18 21:05 Ur Phencyclidine Scrn Presumptive negative 03/29/18 21:05 Ur Amphetamines Screen Presumptive negative 03/29/18 21:05 U Benzodiazepines Scrn Presumptive positive 03/29/18 21:05 Urine Cocaine Screen Presumptive negative 03/29/18 21:05 U Marijuana (THC) Screen Presumptive positive 03/29/18 21:05 Drugs of Abuse Note Disclamer 03/29/18 21:05 Plasma/Serum Alcohol < 0.01 % (0-0.07) 03/28/18 22:03
[2018-03-30] MEDS ORDERED: SLOW-MAG PO SCH (10:00)
[2018-03-30] MEDS: HumuLIN R SUB-Q SCH ×2 (11:11→12:47)
[2018-03-30] MEDS: LOVENOX SUB-Q SCH (11:40)
[2018-03-30] MEDS: PROTONIX IV SCH ×2 (11:40→22:16)
[2018-03-30] MEDS: SODIUM CHLORIDE FLUSH SYRINGE 10 ML IV SCH ×2 (11:40→22:16)
--- NOTE | 2018-03-30 14:38 | Progress Note ---
Assessment and Plan Acute respiratory failure, on mechanical ventilator secondary to drug overdose. Drug overdose. Suicide attempt. Leukocytosis. Metabolic acidosis. Hypokalemia. Mild hyponatremia. - continue supplemental oxygen for target O2 Sats > 90% - VAP bundle addressed - begin enteral nutrition - continue bronchodilators with pulmonary hygiene per RT - hold all sedation and allows drugs to metabolize while following clinically - high risk of extubation failure if mental status does not improve - continue mobility protocol for pressure ulcer prophylaxis - continue GI & VTE prophylaxis - continue 1013 status - psych evaluation once extubated - flu & pneumovax addressed per protocol - critical care bundles addressed - care plan discussed at length with mother and loved ones in room The high probability of a clinically significant, sudden or life threatening deterioration of the [respiratory and neurological] system(s) required my full and direct attention, intervention and personal management. The aggregate critical care time was [40] minutes. This time is in addition to time spent performing reported procedures but includes the following: [x] Data Review and interpretation [x] Patient assessment and monitoring of vital signs [x] Documentation [x] Medication orders and managementContinue GI prophylaxis Subjective Date of service: 03/30/18 Principal diagnosis: Acute Respiratory Failure; Drug OD; Suicide Attempt Interval history: Patient is seen today for: Acute Respiratory Failure; Drug OD; Suicide Attempt Seen and examined at bedside; 24hour events reviewed; nursing and respiratory care staff consulted; no adverse overnight events reported to me; remains on MVS ; remains lethargic; tolerating MVS; + N&V; denies acute chest pains; still very lethargic though Objective Vital Signs - 12hr 03/30/18 03/30/18 03/30/18 03:00 03:30 03:52 Temperature Pulse Rate 82 82 79 Respiratory 16 16 Rate Blood Pressure 112/68 109/66 109/66 O2 Sat by Pulse 100 100 100 Oximetry 03/30/18 03/30/18 03/30/18 04:00 04:30 05:00 Temperature Pulse Rate 78 85 80 Respiratory 10 L 23 16 Rate Blood Pressure 104/62 102/70 114/69 O2 Sat by Pulse 95 100 100 Oximetry 03/30/18 03/30/18 03/30/18 05:30 06:00 06:30 Temperature Pulse Rate 82 81 84 Respiratory 16 16 16 Rate Blood Pressure 109/69 107/64 113/65 O2 Sat by Pulse 100 100 96 Oximetry 03/30/18 03/30/18 03/30/18 07:00 07:30 07:36 Temperature Pulse Rate 85 86 84 Respiratory 16 16 Rate Blood Pressure 104/65 104/58 104/58 O2 Sat by Pulse 96 98 100 Oximetry 03/30/18 03/30/18 03/30/18 08:00 08:30 09:00 Temperature 99.1 F Pulse Rate 85 86 88 Respiratory 16 16 16 Rate Blood Pressure 115/67 114/70 112/68 O2 Sat by Pulse 99 98 Oximetry 03/30/18 03/30/18 03/30/18 09:30 10:00 10:18 Temperature Pulse Rate 89 88 92 H Respiratory 16 16 20 Rate Blood Pressure 112/64 119/72 119/72 O2 Sat by Pulse 99 99 100 Oximetry 03/30/18 03/30/18 03/30/18 10:30 11:00 11:30 Temperature Pulse Rate 98 H 97 H 99 H Respiratory 14 13 13 Rate Blood Pressure 114/81 132/79 131/74 O2 Sat by Pulse 94 98 99 Oximetry 03/30/18 03/30/18 03/30/18 12:00 13:03 13:31 Temperature 99.3 F Pulse Rate 95 H 96 H 96 H Respiratory 12 13 16 Rate Blood Pressure 133/81 131/74 137/74 O2 Sat by Pulse 99 97 100 Oximetry Constitutional: no acute distress Eyes: non-icteric ENT: oropharynx moist, other (ETT 23 cm DAGO) Neck: supple, no JVD, other (No thyromegaly) Effort: mildly labored Ascultation: Bilateral: clear, diminished breath sounds Percussion: Bilateral: not dull Cardiovascular: regular rate and rhythm, other (No R/M) Gastrointestinal: normoactive bowel sounds, soft, non-tender, non-distended, other (No palpable HSM) Integumentary: normal Extremities: no cyanosis, no edema, pulses normal, no ischemia or petechiae Neurologic: non-focal exam, pupils equal and round, CN II-XII normal, motor strength normal and Psychiatric: depressed CBC and BMP: 03/30/18 05:45 03/30/18 05:45 ABG, PT/INR, D-dimer: ABG POC ABG pH 7.349 (7.35-7.45) L 03/30/18 13:31 POC ABG pCO2 41.3 (35-45) 03/30/18 13:31 POC ABG pO2 84 (80-105) 03/30/18 13:31 POC ABG HCO3 22.7 03/30/18 13:31 POC ABG Total CO2 24 03/30/18 13:31 POC ABG O2 Sat 96 03/30/18 13:31 Abnormal lab findings: Abnormal Labs 03/28/18 03/28/18 03/28/18 22:03 22:03 22:03 WBC 13.5 H RBC Hgb Lymph % (Auto) 9.0 L [place] % (Auto) [place] # Seg Neutrophils % 83.4 H Seg Neutrophils # 11.2 H POC ABG pH POC ABG pO2 Sodium 136 L Potassium 3.2 L Carbon Dioxide 20 L Glucose POC Glucose Calcium Magnesium Salicylates < 0.3 L Acetaminophen 03/28/18 03/28/18 03/29/18 22:03 23:20 04:59 WBC RBC Hgb Lymph % (Auto) [place] % (Auto) [place] # Seg Neutrophils % Seg Neutrophils # POC ABG pH POC ABG pO2 173 H 124 H Sodium Potassium Carbon Dioxide Glucose POC Glucose Calcium Magnesium Salicylates Acetaminophen < 5.0 L 03/29/18 03/29/18 03/29/18 16:15 19:31 22:03 WBC RBC Hgb Lymph % (Auto) [place] % (Auto) [place] # Seg Neutrophils % Seg Neutrophils # POC ABG pH POC ABG pO2 115 H Sodium Potassium Carbon Dioxide Glucose POC Glucose 111 H Calcium Magnesium 1.60 L Salicylates Acetaminophen 03/30/18 03/30/18 03/30/18 05:45 05:45 11:22 WBC RBC 3.51 L Hgb 10.0 L Lymph % (Auto) [place] % (Auto) 12.8 H [place] # 1.4 H Seg Neutrophils % Seg Neutrophils # POC ABG pH POC ABG pO2 Sodium Potassium Carbon Dioxide Glucose 129 H POC Glucose 122 H Calcium 8.0 L Magnesium 1.60 L Salicylates Acetaminophen 03/30/18 13:31 WBC RBC Hgb Lymph % (Auto) [place] % (Auto) [place] # Seg Neutrophils % Seg Neutrophils # POC ABG pH 7.349 L POC ABG pO2 Sodium Potassium Carbon Dioxide Glucose POC Glucose Calcium Magnesium Salicylates Acetaminophen Chest x-ray: image reviewed (ETT tip in good position; clear otherwise) Allied health notes reviewed: nursing
--- NOTE | 2018-03-30 23:39 | Consultation ---
CRITICAL CARE CONSULT NOTE CONSULTING PHYSICIAN: Dr. Christian. REASON FOR CONSULTATION: Acute respiratory failure, status post drug overdose. CHIEF COMPLAINT AND HISTORY OF PRESENT ILLNESS: The patient is a 33-year-old -[place] female with past medical history significant unknown and denied actually by the father in the room. Denies any past medical history of significance, who was brought into the Emergency Room after a suicidal attempt by drug overdose. According to the emergency medical service, she was found in a pharmacy parking lot, where she had purchased a bottle of Aleve and 3 bottles of sleeping pill, took them in the parking lot. The pharmacy called police. She threw up in the parking lot. She was unresponsive at that time she presented in the ER. She was intubated for airway protection. I believe she received some activated charcoal and was admitted to the hospital. Her admission EKG was reviewed and had a QT corrected of about 475. When I stopped by to see her, she was on the mechanical ventilator. She was actually sedated. I believe she was on propofol drip. She was riding the set rate on the ventilator. I do not have any history of trauma. The above is as much of the history of presentation. Now with regards to tobacco use/abuse history, the family had denied any tobacco use or abuse. PAST MEDICAL HISTORY: None. PAST SURGICAL HISTORY: Unknown. MEDICATIONS: She was on at the time I stopped by to see her included the following: P.r.n. Tylenol 650 mg q.6 hours p.r.n. mild pain or fevers, Lovenox 40 mg subcutaneous daily, fentanyl had just been ordered to be started at 1 mcg/kg per hour as needed. She had been on an Ativan drip at 1.5 mg an hour, Zofran 4 mg IV q.8 hours p.r.n. nausea and vomiting, Protonix 40 mg IV b.i.d. She had been on a propofol drip at 50 mcg per kilogram per minute. ALLERGIES: No known drug allergies. DIET: Petite lady. Family denied acute weight loss or gain preceding few weeks to months. FAMILY AND SOCIAL HISTORY: Apparently lives in the community. Alcohol, tobacco, or illicit drug use or abuse history is unknown, denied by family. Family history is otherwise noncontributory. REVIEW OF SYSTEMS: Unobtainable secondary to the patient's medical and mental condition. Since she has been in the hospital, no gross hematochezia or melena, no gross hematuria, no hematemesis, no bloody tracheal secretions and no witnessed seizures. PHYSICAL EXAMINATION: VITAL SIGNS: At presentation in the Emergency Room, vital signs: Unfortunately, I do not have any temperature from admission. Her pulse in the ER was 116, respiratory rate 17, blood pressure 130/84, and oxygen sat is 99%, inspired oxygen concentration was not recorded. At the time I saw her, she was on the mechanical ventilator. I believe it was the assist control mode of ventilator, tidal volume is 500, rate of 18, and PEEP of 5. HEAD, EYES, EARS, NOSE AND THROAT: She is anicteric, no conjunctival erythema. Endotracheal tube is in place, taped at the lips around 23 cm. No gross jugular venous distention, no thyromegaly. Oropharynx is moist. LUNGS: Auscultation of both lung cristobal, scant bibasilar inspiratory rales. No wheezing. HEART: Heart sounds 1 and 2 are heard, regular rate and rhythm at the time of my evaluation, without rubs or murmurs. ABDOMEN: Soft. Bowel sounds are positive. Does not appear tender. No palpable hepatosplenomegaly. EXTREMITIES: Without overt digital clubbing or cyanosis. No pedal edema. Dorsalis pedis pulses are palpable bilaterally. NEUROLOGIC: Pupils are round, just about 1-2 mm, very sluggishly reactive to light. Extraocular muscle movements could not be adequately assessed. She had spontaneous withdraws to all 4 extremities. The skin was of normal turgor without obvious cellulitis or rash. LABORATORY DATA: From my review are as follows: Admission white cell count 13,500, hemoglobin 11.1, hematocrit 33.3, platelet count was 355. No band forms. ABG showed a pH of 7.37, pCO2 of 39, pO2 of 173 that was on 30% FiO2. Serum sodium was 136, potassium 3.2, chloride 100, bicarbonate 20, BUN 14, creatinine 0.8, and glucose was 86. Liver function test within normal limits. Urinalysis negative for nitrites and leukocyte esterase. Urine test was negative. Aspirin and Tylenol and alcohol levels were within normal limits. Drug screen positive only for tetrahydrocannabinol, negative otherwise. A repeat test showed but benzodiazepines; however, she had been on treatment with that. Tracheal aspirate, no growth to date. Chest x-ray was reviewed. I have also reviewed the radiologist's interpretation. Essentially, a clear chest x-ray. Endotracheal tube is in good position, no focal infiltrates. CT of the brain was read as a normal examination. ASSESSMENT AND PLAN: 1. Acute respiratory failure, on mechanical ventilator secondary to drug overdose. 2. Drug overdose. 3. Suicide attempt. 4. Leukocytosis. 5. Metabolic acidosis. 6. Hypokalemia. 7. Mild hyponatremia. PLAN: I will stop all sedation right now and begin spontaneous breathing trials. The plan will be to hold on extubation until she is mentally better and able to respond appropriately. Bronchodilators will be on a p.r.n. basis. Aspiration precautions will be maintained. Ventilator-associated pneumonia bundle will be addressed daily. Daily spontaneous breathing trials and sedation assessment trials will be ordered. Oxygen will be weaned to keep sats greater than or equal to about 90%. Psychiatric evaluation will be certainly in order once she has been liberated from the mechanical ventilator. Potassium has been corrected. No obvious seizure activity has been noted. We will keep an eye on her QT interval and watch out for arrhythmias. I will hold on empiric antibiotic therapy at this point. She is appropriately on GI prophylaxis as well as DVT prophylaxis. Flu and pneumonia vaccination will be per protocol. Consideration will be given to alkalinization of the urine depending on the clinical status and her electrolytes as well as the EKG findings. Thank you very much for the consult. We will follow along and make further recommendations as picture progresses/becomes clearer. She is critically ill, on life-sustaining interventions including mechanical ventilator support, at high risk for further intervention including . At this point, I have spent about 35-40 minutes of critical care time without overlap and excluding any procedural time that may be necessary. I have had extensive discussions with her father in the room regarding the plan of care. JOB# [id number] BENJI/NIELS TRIPLETT
[2018-03-31] MEDS: D5W/0.45% NACL/KCL 20 MEQ 20 MEQ/1,000 ML BAG IV SCH (06:43)
[2018-03-31] MEDS: LOVENOX SUB-Q SCH (12:22)
[2018-03-31] MEDS: PEPCID IV SCH ×2 (12:23→21:48)
[2018-03-31] MEDS: SODIUM CHLORIDE FLUSH SYRINGE 10 ML IV SCH ×2 (12:23→22:46)
--- NOTE | 2018-03-31 13:54 | Event Note ---
Date: 03/31/18 Self extubated but doing much better overall. Mother in room No acute need for re-intubation denies acute chest pains or increased SOB Constitutional: no acute distress Eyes: non-icteric ENT: oropharynx moist, other Neck: supple, no JVD, other (No thyromegaly) Effort: mildly labored Ascultation: Bilateral: clear, diminished breath sounds Percussion: Bilateral: not dull Cardiovascular: regular rate and rhythm, other (No R/M) Gastrointestinal: normoactive bowel sounds, soft, non-tender, non-distended, other (No palpable HSM) Integumentary: normal Extremities: no cyanosis, no edema, pulses normal, no ischemia or petechiae Neurologic: non-focal exam, pupils equal and round, CN II-XII normal, motor strength normal and Psychiatric: depressed Vitals: Temp Pulse Resp BP Pulse Ox 98.3 F 94 H 26 H 125/73 100 03/31/18 12:00 03/31/18 15:30 03/31/18 15:30 03/31/18 15:30 03/31/18 15:00 Results - Labs CBC & Chem 7: 03/30/18 05:45 Labs: Laboratory Last Values WBC 10.5 K/mm3 (4.5-11.0) 03/30/18 05:45 RBC 3.51 M/mm3 (3.65-5.03) L 03/30/18 05:45 Hgb 10.0 gm/dl (10.1-14.3) L 03/30/18 05:45 Hct 30.7 % (30.3-42.9) 03/30/18 05:45 MCV 87 fl (79-97) 03/30/18 05:45 MCH 29 pg (28-32) 03/30/18 05:45 MCHC 33 % (30-34) 03/30/18 05:45 RDW 14.9 % (13.2-15.2) 03/30/18 05:45 Plt Count 289 K/mm3 (140-440) 03/30/18 05:45 Lymph % (Auto) 17.0 % (13.4-35.0) 03/30/18 05:45 [place] % (Auto) 12.8 % (0.0-7.3) H 03/30/18 05:45 Eos % (Auto) 2.5 % (0.0-4.3) 03/30/18 05:45 Baso % (Auto) 0.3 % (0.0-1.8) 03/30/18 05:45 Lymph # 1.8 K/mm3 (1.2-5.4) 03/30/18 05:45 [place] # 1.4 K/mm3 (0.0-0.8) H 03/30/18 05:45 Eos # 0.3 K/mm3 (0.0-0.4) 03/30/18 05:45 Baso # 0.0 K/mm3 (0.0-0.1) 03/30/18 05:45 Seg Neutrophils % 67.4 % (40.0-70.0) 03/30/18 05:45 Seg Neutrophils # 7.1 K/mm3 (1.8-7.7) 03/30/18 05:45 POC ABG pH 7.349 (7.35-7.45) L 03/30/18 13:31 POC ABG pCO2 41.3 (35-45) 03/30/18 13:31 POC ABG pO2 84 (80-105) 03/30/18 13:31 POC ABG HCO3 22.7 03/30/18 13:31 POC ABG Total CO2 24 03/30/18 13:31 POC ABG O2 Sat 96 03/30/18 13:31 POC ABG Base Excess -3 03/30/18 13:31 FiO2 25 % 03/30/18 13:31 Sodium 138 mmol/L (137-145) 03/30/18 05:45 Potassium 3.7 mmol/L (3.6-5.0) 03/30/18 05:45 Chloride 104.7 mmol/L (98-107) 03/30/18 05:45 Carbon Dioxide 22 mmol/L (22-30) 03/30/18 05:45 Anion Gap 15 mmol/L 03/30/18 05:45 BUN 7 mg/dL (7-17) 03/30/18 05:45 Creatinine 0.7 mg/dL (0.7-1.2) 03/30/18 05:45 Estimated GFR > 60 ml/min 03/30/18 05:45 BUN/Creatinine Ratio 10 % 03/30/18 05:45 Glucose 129 mg/dL (65-100) H 03/30/18 05:45 POC Glucose 122 (70-105) H 03/30/18 11:22 Calcium 8.0 mg/dL (8.4-10.2) L 03/30/18 05:45 Magnesium 1.60 mg/dL (1.7-2.3) L 03/30/18 05:45 Total Bilirubin 0.20 mg/dL (0.1-1.2) 03/28/18 22:03 AST 23 units/L (5-40) 03/28/18 22:03 ALT 12 units/L (7-56) 03/28/18 22:03 Alkaline Phosphatase 83 units/L (35-129) 03/28/18 22:03 Total Protein 7.7 g/dL (6.3-8.2) 03/28/18 22:03 Albumin 3.9 g/dL (3.9-5) 03/28/18 22:03 Albumin/Globulin Ratio 1.0 % 03/28/18 22:03 Urine Color Yellow (Yellow) 03/28/18 22:31 Urine Turbidity Slightly-cloudy (Clear) 03/28/18 22:31 Urine pH 5.0 (5.0-7.0) 03/28/18 22:31 Ur Specific [place] 1.019 (1.003-1.030) 03/28/18 22:31 Urine Protein 100 mg/dl mg/dL (Negative) 03/28/18 22:31 Urine Glucose (UA) Neg mg/dL (Negative) 03/28/18 22:31 Urine Ketones 20 mg/dL (Negative) 03/28/18 22:31 Urine Blood Neg (Negative) 03/28/18 22:31 Urine Nitrite Neg (Negative) 03/28/18 22:31 Ur Reducing Substances Not Reportable 03/28/18 22:31 Urine Bilirubin Neg (Negative) 03/28/18 22:31 Urine Ictotest Not Reportable 03/28/18 22:31 Urine Urobilinogen < 2.0 mg/dL (<2.0) 03/28/18 22:31 Ur Leukocyte Esterase Neg (Negative) 03/28/18 22:31 Urine WBC (Auto) 2.0 /HPF (0.0-6.0) 03/28/18 22:31 Urine RBC (Auto) 3.0 /HPF (0.0-6.0) 03/28/18 22:31 U Epithel Cells (Auto) 1.0 /HPF (0-13.0) 03/28/18 22:31 Urine Mucus Few /HPF 03/28/18 22:31 Urine HCG, Qual Negative (Negative) 03/28/18 22:31 Salicylates < 0.3 mg/dL (2.8-20.0) L 03/28/18 22:03 Urine Opiates Screen Presumptive negative 03/29/18 21:05 Urine Methadone Screen Presumptive negative 03/29/18 21:05 Acetaminophen < 5.0 ug/mL (10.0-30.0) L 03/28/18 22:03 Ur Barbiturates Screen Presumptive negative 03/29/18 21:05 Ur Phencyclidine Scrn Presumptive negative 03/29/18 21:05 Ur Amphetamines Screen Presumptive negative 03/29/18 21:05 U Benzodiazepines Scrn Presumptive positive 03/29/18 21:05 Urine Cocaine Screen Presumptive negative 03/29/18 21:05 U Marijuana (THC) Screen Presumptive positive 03/29/18 21:05 Drugs of Abuse Note Disclamer 03/29/18 21:05 Plasma/Serum Alcohol < 0.01 % (0-0.07) 03/28/18 22:03 ASSESSMENT & PLAN: Acute respiratory failure, s/p mechanical ventilator secondary to drug overdose. Drug overdose. Suicide attempt. Leukocytosis. Metabolic acidosis. Hypokalemia. Mild hyponatremia. - continue supplemental oxygen for target O2 Sats > 90% - dysphagia screen and advance diet if passes - continue prn bronchodilators with pulmonary hygiene per RT - PT/OT as tolerated - continue GI & VTE prophylaxis - continue 1013 status - psych evaluation pending - flu & pneumovax addressed per protocol - advance diet - transfer to medical floor - care plan discussed at length with mother and loved ones in room ... doing better ... re-evaluate in am & prn
--- NOTE | 2018-03-31 15:58 | Progress Note ---
Assessment and Plan Assessment and plan: 1. Acute toxic encephalopathy secondary to drug overdose -Patient intubated for airway protection and mild extubated -Mental status improved extensive counseling greater than 15 minutes presented to the patient 2. Drug overdose (OCT Aleve and sleeping pills) -S/p activated charcoal and on benzo drip for seizure prophylaxis as recommended by poison control -Salicylates and acetaminophen levels normal -Continued 1013 -Pending psych evaluation -Postoperatively prior history of suicidal attempt when patient was age 14. 3. SIRS without acute infection -Continue to monitor -WBC level WNL -Afebrile 4. Hypokalemia and hypomagnesemia -Replace potassium and magnesium - Recheck levels 2 hr after administration -Continue DVT prophylaxis -Continue to monitor progress - Supportive care DVT and GI prophylaxis TRANSFER to medical floor. History Interval history: Patient seen and examined today back to distress resting comfortably patient self extubated last night. She denies any chest pain nausea vomiting or diarrhea. She is unable to give any information as to the events happening prior to presentation. No family at bedside at this time Hospitalist Physical - Physical exam Narrative exam: VITAL SIGNS: Reviewed. GENERAL: The patient appeared well nourished and normally developed. Vital signs as documented. HEAD: No signs of head trauma. EYES: Pupils are equal. Extraocular motions intact. EARS: Hearing grossly intact. MOUTH: Oropharynx is normal. NECK: No adenopathy, no JVD. CHEST: Chest with clear breath sounds bilaterally. No wheezes, rales, or rhonchi. CARDIAC: Regular rate and rhythm. S1 and S2, without murmurs, gallops, or rubs. VASCULAR: No Edema. Peripheral pulses normal and equal in all extremities. ABDOMEN: Soft, without detectable tenderness. No sign of distention. No rebound or guarding, and no masses palpated. Bowel Sounds normal. MUSCULOSKELETAL: Good range of motion of all major joints. Extremities without clubbing, cyanosis or edema. NEUROLOGIC EXAM: Alert and oriented x 3. No focal sensory or strength deficits. Speech normal. Follows commands. PSYCHIATRIC: Mood normal. SKIN: Skin tattoos - Constitutional Vitals: Temp Pulse Resp BP Pulse Ox 98.3 F 94 H 26 H 125/73 100 03/31/18 12:00 03/31/18 15:30 03/31/18 15:30 03/31/18 15:30 03/31/18 15:00 General appearance: Present: no acute distress, other (patient is intubated and sedated) Results - Labs CBC & Chem 7: 03/30/18 05:45 03/30/18 05:45 Labs: Laboratory Last Values WBC 10.5 K/mm3 (4.5-11.0) 03/30/18 05:45 RBC 3.51 M/mm3 (3.65-5.03) L 03/30/18 05:45 Hgb 10.0 gm/dl (10.1-14.3) L 03/30/18 05:45 Hct 30.7 % (30.3-42.9) 03/30/18 05:45 MCV 87 fl (79-97) 03/30/18 05:45 MCH 29 pg (28-32) 03/30/18 05:45 MCHC 33 % (30-34) 03/30/18 05:45 RDW 14.9 % (13.2-15.2) 03/30/18 05:45 Plt Count 289 K/mm3 (140-440) 03/30/18 05:45 Lymph % (Auto) 17.0 % (13.4-35.0) 03/30/18 05:45 [place] % (Auto) 12.8 % (0.0-7.3) H 03/30/18 05:45 Eos % (Auto) 2.5 % (0.0-4.3) 03/30/18 05:45 Baso % (Auto) 0.3 % (0.0-1.8) 03/30/18 05:45 Lymph # 1.8 K/mm3 (1.2-5.4) 03/30/18 05:45 [place] # 1.4 K/mm3 (0.0-0.8) H 03/30/18 05:45 Eos # 0.3 K/mm3 (0.0-0.4) 03/30/18 05:45 Baso # 0.0 K/mm3 (0.0-0.1) 03/30/18 05:45 Seg Neutrophils % 67.4 % (40.0-70.0) 03/30/18 05:45 Seg Neutrophils # 7.1 K/mm3 (1.8-7.7) 03/30/18 05:45 POC ABG pH 7.349 (7.35-7.45) L 03/30/18 13:31 POC ABG pCO2 41.3 (35-45) 03/30/18 13:31 POC ABG pO2 84 (80-105) 03/30/18 13:31 POC ABG HCO3 22.7 03/30/18 13:31 POC ABG Total CO2 24 03/30/18 13:31 POC ABG O2 Sat 96 03/30/18 13:31 POC ABG Base Excess -3 03/30/18 13:31 FiO2 25 % 03/30/18 13:31 Sodium 138 mmol/L (137-145) 03/30/18 05:45 Potassium 3.7 mmol/L (3.6-5.0) 03/30/18 05:45 Chloride 104.7 mmol/L (98-107) 03/30/18 05:45 Carbon Dioxide 22 mmol/L (22-30) 03/30/18 05:45 Anion Gap 15 mmol/L 03/30/18 05:45 BUN 7 mg/dL (7-17) 03/30/18 05:45 Creatinine 0.7 mg/dL (0.7-1.2) 03/30/18 05:45 Estimated GFR > 60 ml/min 03/30/18 05:45 BUN/Creatinine Ratio 10 % 03/30/18 05:45 Glucose 129 mg/dL (65-100) H 03/30/18 05:45 POC Glucose 122 (70-105) H 03/30/18 11:22 Calcium 8.0 mg/dL (8.4-10.2) L 03/30/18 05:45 Magnesium 1.60 mg/dL (1.7-2.3) L 03/30/18 05:45 Total Bilirubin 0.20 mg/dL (0.1-1.2) 03/28/18 22:03 AST 23 units/L (5-40) 03/28/18 22:03 ALT 12 units/L (7-56) 03/28/18 22:03 Alkaline Phosphatase 83 units/L (35-129) 03/28/18 22:03 Total Protein 7.7 g/dL (6.3-8.2) 03/28/18 22:03 Albumin 3.9 g/dL (3.9-5) 03/28/18 22:03 Albumin/Globulin Ratio 1.0 % 03/28/18 22:03 Urine Color Yellow (Yellow) 03/28/18 22: Urine Turbidity Slightly-cloudy (Clear) 03/28/18 22:31 Urine pH 5.0 (5.0-7.0) 03/28/18 22:31 Ur Specific [place] 1.019 (1.003-1.030) 03/28/18 22:31 Urine Protein 100 mg/dl mg/dL (Negative) 03/28/18 22:31 Urine Glucose (UA) Neg mg/dL (Negative) 03/28/18 22:31 Urine Ketones 20 mg/dL (Negative) 03/28/18 22:31 Urine Blood Neg (Negative) 03/28/18 22: Urine Nitrite Neg (Negative) 03/28/18 22:31 Ur Reducing Substances Not Reportable 03/28/18 22:31 Urine Bilirubin Neg (Negative) 03/28/18 22:31 Urine Ictotest Not Reportable 03/28/18 22:31 Urine Urobilinogen < 2.0 mg/dL (<2.0) 03/28/18 22:31 Ur Leukocyte Esterase Neg (Negative) 03/28/18 22:31 Urine WBC (Auto) 2.0 /HPF (0.0-6.0) 03/28/18 22:31 Urine RBC (Auto) 3.0 /HPF (0.0-6.0) 03/28/18 22:31 U Epithel Cells (Auto) 1.0 /HPF (0-13.0) 03/28/18 22:31 Urine Mucus Few /HPF 03/28/18 22:31 Urine HCG, Qual Negative (Negative) 03/28/18 22:31 Salicylates < 0.3 mg/dL (2.8-20.0) L 03/28/18 22:03 Urine Opiates Screen Presumptive negative 03/29/18 21:05 Urine Methadone Screen Presumptive negative 03/29/18 21:05 Acetaminophen < 5.0 ug/mL (10.0-30.0) L 03/28/18 22:03 Ur Barbiturates Screen Presumptive negative 03/29/18 21:05 Ur Phencyclidine Scrn Presumptive negative 03/29/18 21:05 Ur Amphetamines Screen Presumptive negative 03/29/18 21:05 U Benzodiazepines Scrn Presumptive positive 03/29/18 21:05 Urine Cocaine Screen Presumptive negative 03/29/18 21:05 U Marijuana (THC) Screen Presumptive positive 03/29/18 21:05 Drugs of Abuse Note Disclamer 03/29/18 21:05 Plasma/Serum Alcohol < 0.01 % (0-0.07) 03/28/18 22:03
[2018-03-31] MEDS: REGLAN IV SCH ×2 (17:13→21:48)
[2018-04-01] MEDS: REGLAN IV SCH ×3 (05:13→21:28)
--- NOTE | 2018-04-01 08:21 | XRay Report ---
AP CHEST: HISTORY: Sepsis The endotracheal tube and nasogastric tube have been removed since 03/30/18. Discoid opacity has developed at the left lung base since the previous exam. This is most suggestive of atelectatic changes. I suppose an early infiltrate could be considered. The remainder of the lungs are clear. No pleural fluid or pneumothorax. Normal heart and mediastinal structures. IMPRESSION: Questionable left lower lobe opacity as described. I favor discoid segmental atelectasis.
[2018-04-01] MEDS: SODIUM CHLORIDE FLUSH SYRINGE 10 ML IV SCH ×2 (09:37→21:29)
[2018-04-01] MEDS: PEPCID IV SCH ×2 (09:37→21:28)
[2018-04-01] MEDS: LOVENOX SUB-Q SCH (09:37)
--- NOTE | 2018-04-01 09:39 | Progress Note ---
Assessment and Plan Assessment and plan: Acute toxic encephalopathy secondary to drug overdose -Patient was intubated for airway protection, now extubated -Mental status improved extensive counseling greater than 15 minutes presented to the patient Drug overdose (OCT Aleve and sleeping pills) -S/p activated charcoal and on benzo drip for seizure prophylaxis as recommended by poison control -Salicylates and acetaminophen levels normal -Continued 1013 -Pending psych evaluation -Prior history of suicidal attempt when patient was age 14. SIRS without acute infection -Continue to monitor -WBC level WNL - Hypokalemia Resolved Hypomagnesemia Replace and recheck in am DVT prophylaxis with Lovenox. Full code status. History Interval history: Patient with drug overdose, Hospitalist Physical - Physical exam Narrative exam: GEN:Not in acute distress, lying in bed HEENT: Normocephalic, atraumatic, Neck: supple, No JVD Lungs: Clear to auscultaion bilaterally, no crackles Heart:S1 and S2 reg, no murmurs, rubs or gallop Abd:soft, non-tender, non-distended, Normal bowel sounds Ext: No edema, clubbing or cyanosis Neuro: Awake, alert, oriented X 3, Moves all extremities - Constitutional Vitals: Temp Pulse Resp BP Pulse Ox 100.8 F H 103 H 16 115/76 98 03/31/18 20:00 03/31/18 20:00 03/31/18 20:00 03/31/18 20:00 03/31/18 20:00 General appearance: Present: no acute distress, other (patient is intubated and sedated) Results - Labs CBC & Chem 7: 03/30/18 05:45 03/30/18 05:45 Labs: Laboratory Last Values WBC 10.5 K/mm3 (4.5-11.0) 03/30/18 05:45 RBC 3.51 M/mm3 (3.65-5.03) L 03/30/18 05:45 Hgb 10.0 gm/dl (10.1-14.3) L 03/30/18 05:45 Hct 30.7 % (30.3-42.9) 03/30/18 05:45 MCV 87 fl (79-97) 03/30/18 05:45 MCH 29 pg (28-32) 03/30/18 05:45 MCHC 33 % (30-34) 03/30/18 05:45 RDW 14.9 % (13.2-15.2) 03/30/18 05:45 Plt Count 289 K/mm3 (140-440) 03/30/18 05:45 Lymph % (Auto) 17.0 % (13.4-35.0) 03/30/18 05:45 [place] % (Auto) 12.8 % (0.0-7.3) H 03/30/18 05:45 Eos % (Auto) 2.5 % (0.0-4.3) 03/30/18 05:45 Baso % (Auto) 0.3 % (0.0-1.8) 03/30/18 05:45 Lymph # 1.8 K/mm3 (1.2-5.4) 03/30/18 05:45 [place] # 1.4 K/mm3 (0.0-0.8) H 03/30/18 05:45 Eos # 0.3 K/mm3 (0.0-0.4) 03/30/18 05:45 Baso # 0.0 K/mm3 (0.0-0.1) 03/30/18 05:45 Seg Neutrophils % 67.4 % (40.0-70.0) 03/30/18 05:45 Seg Neutrophils # 7.1 K/mm3 (1.8-7.7) 03/30/18 05:45 POC ABG pH 7.349 (7.35-7.45) L 03/30/18 13:31 POC ABG pCO2 41.3 (35-45) 03/30/18 13:31 POC ABG pO2 84 (80-105) 03/30/18 13:31 POC ABG HCO3 22.7 03/30/18 13:31 POC ABG Total CO2 24 03/30/18 13:31 POC ABG O2 Sat 96 03/30/18 13:31 POC ABG Base Excess -3 03/30/18 13:31 FiO2 25 % 03/30/18 13:31 Sodium 138 mmol/L (137-145) 03/30/18 05:45 Potassium 3.7 mmol/L (3.6-5.0) 03/30/18 05:45 Chloride 104.7 mmol/L (98-107) 03/30/18 05:45 Carbon Dioxide 22 mmol/L (22-30) 03/30/18 05:45 Anion Gap 15 mmol/L 03/30/18 05:45 BUN 7 mg/dL (7-17) 03/30/18 05:45 Creatinine 0.7 mg/dL (0.7-1.2) 03/30/18 05:45 Estimated GFR > 60 ml/min 03/30/18 05:45 BUN/Creatinine Ratio 10 % 03/30/18 05:45 Glucose 129 mg/dL (65-100) H 03/30/18 05:45 POC Glucose 122 (70-105) H 03/30/18 11:22 Calcium 8.0 mg/dL (8.4-10.2) L 03/30/18 05:45 Magnesium 1.60 mg/dL (1.7-2.3) L 03/30/18 05:45 Total Bilirubin 0.20 mg/dL (0.1-1.2) 03/28/18 22:03 AST 23 units/L (5-40) 03/28/18 22:03 ALT 12 units/L (7-56) 03/28/18 22:03 Alkaline Phosphatase 83 units/L (35-129) 03/28/18 22:03 Total Protein 7.7 g/dL (6.3-8.2) 03/28/18 22:03 Albumin 3.9 g/dL (3.9-5) 03/28/18 22:03 Albumin/Globulin Ratio 1.0 % 03/28/18 22:03 Urine Color Yellow (Yellow) 03/28/18 22:31 Urine Turbidity Slightly-cloudy (Clear) 03/28/18 22:31 Urine pH 5.0 (5.0-7.0) 03/28/18 22:31 Ur Specific [place] 1.019 (1.003-1.030) 03/28/18 22:31 Urine Protein 100 mg/dl mg/dL (Negative) 03/28/18 22:31 Urine Glucose (UA) Neg mg/dL (Negative) 03/28/18 22:31 Urine Ketones 20 mg/dL (Negative) 03/28/18 22:31 Urine Blood Neg (Negative) 03/28/18 22:31 Urine Nitrite Neg (Negative) 03/28/18 22:31 Ur Reducing Substances Not Reportable 03/28/18 22:31 Urine Bilirubin Neg (Negative) 03/28/18 22:31 Urine Ictotest Not Reportable 03/28/18 22:31 Urine Urobilinogen < 2.0 mg/dL (<2.0) 03/28/18 22:31 Ur Leukocyte Esterase Neg (Negative) 03/28/18 22:31 Urine WBC (Auto) 2.0 /HPF (0.0-6.0) 03/28/18 22:31 Urine RBC (Auto) 3.0 /HPF (0.0-6.0) 03/28/18 22:31 U Epithel Cells (Auto) 1.0 /HPF (0-13.0) 03/28/18 22:31 Urine Mucus Few /HPF 03/28/18 22:31 Urine HCG, Qual Negative (Negative) 03/28/18 22:31 Salicylates < 0.3 mg/dL (2.8-20.0) L 03/28/18 22:03 Urine Opiates Screen Presumptive negative 03/29/18 21:05 Urine Methadone Screen Presumptive negative 03/29/18 21:05 Acetaminophen < 5.0 ug/mL (10.0-30.0) L 03/28/18 22:03 Ur Barbiturates Screen Presumptive negative 03/29/18 21:05 Ur Phencyclidine Scrn Presumptive negative 03/29/18 21:05 Ur Amphetamines Screen Presumptive negative 03/29/18 21:05 U Benzodiazepines Scrn Presumptive positive 03/29/18 21:05 Urine Cocaine Screen Presumptive negative 03/29/18 21:05 U Marijuana (THC) Screen Presumptive positive 03/29/18 21:05 Drugs of Abuse Note Disclamer 03/29/18 21:05 Plasma/Serum Alcohol < 0.01 % (0-0.07) 03/28/18 22:03
[2018-04-01] MEDS ORDERED: MAGNESIUM SULFATE 3 GM in NACL 0.9% 100 ML IV ONE (11:00)
--- NOTE | 2018-04-01 15:20 | Progress Note ---
Assessment and Plan Acute respiratory failure, on mechanical ventilator secondary to drug overdose. Drug overdose. Suicide attempt. Leukocytosis. Metabolic acidosis. Hypokalemia. Mild hyponatremia. - continue supplemental oxygen for target O2 Sats > 90% - continue to advance diet as tolerated - continue prn bronchodilators with pulmonary hygiene per RT - PT/OT as tolerated - continue GI & VTE prophylaxis - continue 1013 status - psych evaluation ongoing - flu & pneumovax addressed per protocol - care plan discussed at length with mother and loved ones in room ... doing better ... re-evaluate in am & prn Subjective Date of service: 04/01/18 Principal diagnosis: Acute Respiratory Failure; Drug OD; Suicide Attempt Interval history: Patient is seen today for: Acute Respiratory Failure; Drug OD; Suicide Attempt Seen and examined at bedside; 24hour events reviewed; nursing and respiratory care staff consulted; no adverse overnight events reported to me; resting peacefully in bed; remains on supplemental oxygen; denies acute chest pains; psych evaluation ongoing; + occasional cough Objective Constitutional: no acute distress Eyes: non-icteric ENT: oropharynx moist, other (extubated) Neck: supple, no JVD, other (No thyromegaly) Effort: mildly labored Ascultation: Bilateral: clear, diminished breath sounds Percussion: Bilateral: not dull Cardiovascular: regular rate and rhythm, other (No R/M) Gastrointestinal: normoactive bowel sounds, soft, non-tender, non-distended, other (No palpable HSM) Integumentary: normal Extremities: no cyanosis, no edema, pulses normal, no ischemia or petechiae Neurologic: non-focal exam, pupils equal and round, CN II-XII normal, motor strength normal and Psychiatric: depressed CBC and BMP: 04/02/18 10:35 04/03/18 06:39 ABG, PT/INR, D-dimer: ABG POC ABG pH 7.349 (7.35-7.45) L 03/30/18 13:31 POC ABG pCO2 41.3 (35-45) 03/30/18 13:31 POC ABG pO2 84 (80-105) 03/30/18 13:31 POC ABG HCO3 22.7 03/30/18 13:31 POC ABG Total CO2 24 03/30/18 13:31 POC ABG O2 Sat 96 03/30/18 13:31 Abnormal lab findings: Abnormal Labs 03/28/18 03/28/18 03/28/18 22:03 22:03 22:03 WBC 13.5 H RBC Hgb Lymph % (Auto) 9.0 L [place] % (Auto) [place] # Seg Neutrophils % 83.4 H Seg Neutrophils # 11.2 H POC ABG pH POC ABG pO2 Sodium 136 L Potassium 3.2 L Carbon Dioxide 20 L Glucose POC Glucose Calcium Magnesium Salicylates < 0.3 L Acetaminophen 03/28/18 03/28/18 03/29/18 22:03 23:20 04:59 WBC RBC Hgb Lymph % (Auto) [place] % (Auto) [place] # Seg Neutrophils % Seg Neutrophils # POC ABG pH POC ABG pO2 173 H 124 H Sodium Potassium Carbon Dioxide Glucose POC Glucose Calcium Magnesium Salicylates Acetaminophen < 5.0 L 03/29/18 03/29/18 03/29/18 16:15 19:31 22:03 WBC RBC Hgb Lymph % (Auto) [place] % (Auto) [place] # Seg Neutrophils % Seg Neutrophils # POC ABG pH POC ABG pO2 115 H Sodium Potassium Carbon Dioxide Glucose POC Glucose 111 H Calcium Magnesium 1.60 L Salicylates Acetaminophen 03/30/18 03/30/18 03/30/18 05:45 05:45 11:22 WBC RBC 3.51 L Hgb 10.0 L Lymph % (Auto) [place] % (Auto) 12.8 H [place] # 1.4 H Seg Neutrophils % Seg Neutrophils # POC ABG pH POC ABG pO2 Sodium Potassium Carbon Dioxide Glucose 129 H POC Glucose 122 H Calcium 8.0 L Magnesium 1.60 L Salicylates Acetaminophen 03/30/18 13:31 WBC RBC Hgb Lymph % (Auto) [place] % (Auto) [place] # Seg Neutrophils % Seg Neutrophils # POC ABG pH 7.349 L POC ABG pO2 Sodium Potassium Carbon Dioxide Glucose POC Glucose Calcium Magnesium Salicylates Acetaminophen Allied health notes reviewed: nursing
[2018-04-02] MEDS: REGLAN IV SCH (05:20)
[2018-04-02] MEDS: SODIUM CHLORIDE FLUSH SYRINGE 10 ML IV SCH ×2 (05:20→17:45)
--- NOTE | 2018-04-02 09:23 | Progress Note ---
Assessment and Plan Assessment and plan: Acute toxic encephalopathy secondary to drug overdose -Patient was intubated for airway protection, now extubated -Mental status improved extensive counseling greater than 15 minutes presented to the patient Drug overdose (OCT Aleve and sleeping pills) -S/p activated charcoal and on benzo drip for seizure prophylaxis as recommended by poison control -Salicylates and acetaminophen levels normal -Continued 1013 -Pending psych evaluation -Prior history of suicidal attempt when patient was age 14. Pneumonia left lower lobe. Start Levaquin UTI with enterococcus. levaquin - Hypokalemia replace and recheck. Hypomagnesemia Replace and recheck in am DVT prophylaxis with Lovenox. Full code status. History Interval history: Patient with drug overdose, Cough with sputum production Hospitalist Physical - Physical exam Narrative exam: GEN:Not in acute distress, lying in bed HEENT: Normocephalic, atraumatic, Neck: supple, No JVD Lungs: Clear to auscultaion bilaterally, no crackles Heart:S1 and S2 reg, no murmurs, rubs or gallop Abd:soft, non-tender, non-distended, Normal bowel sounds Ext: No edema, clubbing or cyanosis Neuro: Awake, alert, oriented X 3, Moves all extremities - Constitutional Vitals: Temp Pulse Resp BP Pulse Ox 99.0 F 89 20 117/77 96 04/02/18 05:15 04/02/18 05:15 04/02/18 05:15 04/02/18 05:15 04/02/18 05:15 General appearance: Present: no acute distress, other (patient is intubated and sedated) Results - Labs CBC & Chem 7: 04/02/18 10:35 04/02/18 10:35 Labs: Laboratory Last Values WBC 10.5 K/mm3 (4.5-11.0) 03/30/18 05:45 RBC 3.51 M/mm3 (3.65-5.03) L 03/30/18 05:45 Hgb 10.0 gm/dl (10.1-14.3) L 03/30/18 05:45 Hct 30.7 % (30.3-42.9) 03/30/18 05:45 MCV 87 fl (79-97) 03/30/18 05:45 MCH 29 pg (28-32) 03/30/18 05:45 MCHC 33 % (30-34) 03/30/18 05:45 RDW 14.9 % (13.2-15.2) 03/30/18 05:45 Plt Count 289 K/mm3 (140-440) 03/30/18 05:45 Lymph % (Auto) 17.0 % (13.4-35.0) 03/30/18 05:45 [place] % (Auto) 12.8 % (0.0-7.3) H 03/30/18 05:45 Eos % (Auto) 2.5 % (0.0-4.3) 03/30/18 05:45 Baso % (Auto) 0.3 % (0.0-1.8) 03/30/18 05:45 Lymph # 1.8 K/mm3 (1.2-5.4) 03/30/18 05:45 [place] # 1.4 K/mm3 (0.0-0.8) H 03/30/18 05:45 Eos # 0.3 K/mm3 (0.0-0.4) 03/30/18 05:45 Baso # 0.0 K/mm3 (0.0-0.1) 03/30/18 05:45 Seg Neutrophils % 67.4 % (40.0-70.0) 03/30/18 05:45 Seg Neutrophils # 7.1 K/mm3 (1.8-7.7) 03/30/18 05:45 POC ABG pH 7.349 (7.35-7.45) L 03/30/18 13:31 POC ABG pCO2 41.3 (35-45) 03/30/18 13:31 POC ABG pO2 84 (80-105) 03/30/18 13:31 POC ABG HCO3 22.7 03/30/18 13:31 POC ABG Total CO2 24 03/30/18 13:31 POC ABG O2 Sat 96 03/30/18 13:31 POC ABG Base Excess -3 03/30/18 13:31 FiO2 25 % 03/30/18 13:31 Sodium 138 mmol/L (137-145) 03/30/18 05:45 Potassium 3.7 mmol/L (3.6-5.0) 03/30/18 05:45 Chloride 104.7 mmol/L (98-107) 03/30/18 05:45 Carbon Dioxide 22 mmol/L (22-30) 03/30/18 05:45 Anion Gap 15 mmol/L 03/30/18 05:45 BUN 7 mg/dL (7-17) 03/30/18 05:45 Creatinine 0.7 mg/dL (0.7-1.2) 03/30/18 05:45 Estimated GFR > 60 ml/min 03/30/18 05:45 BUN/Creatinine Ratio 10 % 03/30/18 05:45 Glucose 129 mg/dL (65-100) H 03/30/18 05:45 POC Glucose 122 (70-105) H 03/30/18 11:22 Calcium 8.0 mg/dL (8.4-10.2) L 03/30/18 05:45 Magnesium 1.70 mg/dL (1.7-2.3) 04/02/18 05:48 Total Bilirubin 0.20 mg/dL (0.1-1.2) 03/28/18 22:03 AST 23 units/L (5-40) 03/28/18 22:03 ALT 12 units/L (7-56) 03/28/18 22:03 Alkaline Phosphatase 83 units/L (35-129) 03/28/18 22:03 Total Protein 7.7 g/dL (6.3-8.2) 03/28/18 22:03 Albumin 3.9 g/dL (3.9-5) 03/28/18 22:03 Albumin/Globulin Ratio 1.0 % 03/28/18 22:03 Urine Color Yellow (Yellow) 03/28/18 22:31 Urine Turbidity Slightly-cloudy (Clear) 03/28/18 22:31 Urine pH 5.0 (5.0-7.0) 03/28/18 22:31 Ur Specific [place] 1.019 (1.003-1.030) 03/28/18 22:31 Urine Protein 100 mg/dl mg/dL (Negative) 03/28/18 22:31 Urine Glucose (UA) Neg mg/dL (Negative) 03/28/18 22:31 Urine Ketones 20 mg/dL (Negative) 03/28/18 22:31 Urine Blood Neg (Negative) 03/28/18 22:31 Urine Nitrite Neg (Negative) 03/28/18 22:31 Ur Reducing Substances Not Reportable 03/28/18 22:31 Urine Bilirubin Neg (Negative) 03/28/18 22:31 Urine Ictotest Not Reportable 03/28/18 22:31 Urine Urobilinogen < 2.0 mg/dL (<2.0) 03/28/18 22:31 Ur Leukocyte Esterase Neg (Negative) 03/28/18 22:31 Urine WBC (Auto) 2.0 /HPF (0.0-6.0) 03/28/18 22:31 Urine RBC (Auto) 3.0 /HPF (0.0-6.0) 03/28/18 22:31 U Epithel Cells (Auto) 1.0 /HPF (0-13.0) 03/28/18 22:31 Urine Mucus Few /HPF 03/28/18 22:31 Urine HCG, Qual Negative (Negative) 03/28/18 22:31 Salicylates < 0.3 mg/dL (2.8-20.0) L 03/28/18 22:03 Urine Opiates Screen Presumptive negative 03/29/18 21:05 Urine Methadone Screen Presumptive negative 03/29/18 21:05 Acetaminophen < 5.0 ug/mL (10.0-30.0) L 03/28/18 22:03 Ur Barbiturates Screen Presumptive negative 03/29/18 21:05 Ur Phencyclidine Scrn Presumptive negative 03/29/18 21:05 Ur Amphetamines Screen Presumptive negative 03/29/18 21:05 U Benzodiazepines Scrn Presumptive positive 03/29/18 21:05 Urine Cocaine Screen Presumptive negative 03/29/18 21:05 U Marijuana (THC) Screen Presumptive positive 03/29/18 21:05 Drugs of Abuse Note Disclamer 03/29/18 21:05 Plasma/Serum Alcohol < 0.01 % (0-0.07) 03/28/18 22:03
[2018-04-02] MEDS: LEVAQUIN 750MG/150ML 750 MG/150 ML BAG IV SCH (10:49)
[2018-04-02] MEDS: PEPCID IV SCH (10:49)
[2018-04-02] MEDS: LOVENOX SUB-Q SCH (10:49)
[2018-04-02 10:50] LABS: Hematocrit 35.1 % (30.3-42.9); Mean Corpuscular HGB Conc 34 % (30-34); Mean Corpuscular Hemoglobin 29 pg (28-32); Mean Corpuscular Volume 86 fl (79-97); Platelet Count 336 K/mm3 (140-440); Red Cell Distribution Width 14.1 % (13.2-15.2)
[2018-04-02] MEDS: TESSALON PERLES PO PRN ×2 (10:53→23:11)
[2018-04-02 11:08] LABS: BUN/Creatinine Ratio 16; Blood Urea Nitrogen 8 mg/dL (7-17); Calcium 9.3 mg/dL (8.4-10.2); Hemolysis Index 14
[2018-04-02] MEDS ORDERED: K-DUR PO ONE (13:00)
--- NOTE | 2018-04-02 13:23 | Progress Note ---
Assessment and Plan Acute respiratory failure, on mechanical ventilator secondary to drug overdose. Drug overdose. Suicide attempt. Leukocytosis. Metabolic acidosis. Hypokalemia. Mild hyponatremia. - continue flutter valve - watch clinically off AB's in short term - increase ambulation (once 1013 status cleared) - continue supplemental oxygen for target O2 Sats > 90% - continue to advance diet as tolerated - continue prn bronchodilators with pulmonary hygiene per RT - PT/OT as tolerated - continue GI & VTE prophylaxis - continue 1013 status - psych evaluation ongoing - flu & pneumovax addressed per protocol - care plan discussed at length with mother and loved ones in room ... re-evaluate in am & prn Subjective Date of service: 04/02/18 Principal diagnosis: Acute Respiratory Failure; Drug OD; Suicide Attempt Interval history: Patient is seen today for: Acute Respiratory Failure; Drug OD; Suicide Attempt Seen and examined at bedside; 24hour events reviewed; nursing and respiratory care staff consulted; no adverse overnight events reported to me; mother in room ; she has been coughing up yellowish phlegm ; no hemoptysis; no new issues otherwise Objective Vital Signs - 12hr 04/02/18 04/02/18 04/02/18 05:11 05:15 12:15 Temperature 99.0 F 99.0 F 98.4 F Pulse Rate 89 89 94 H Respiratory 20 20 18 Rate Blood Pressure 137/84 Blood Pressure 117/77 [Right] O2 Sat by Pulse 97 96 98 Oximetry Constitutional: no acute distress Eyes: non-icteric ENT: oropharynx moist, other (ETT 23 cm DAGO) Neck: supple, no JVD, other (No thyromegaly) Effort: mildly labored Ascultation: Bilateral: diminished breath sounds, rales (base) Percussion: Bilateral: not dull Cardiovascular: regular rate and rhythm, other (No R/M) Gastrointestinal: normoactive bowel sounds, soft, non-tender, non-distended, other (No palpable HSM) Integumentary: normal Extremities: no cyanosis, no edema, pulses normal, no ischemia or petechiae Neurologic: non-focal exam, pupils equal and round, CN II-XII normal, motor strength normal and Psychiatric: depressed CBC and BMP: 04/02/18 10:35 04/03/18 06:39 ABG, PT/INR, D-dimer: ABG POC ABG pH 7.349 (7.35-7.45) L 03/30/18 13:31 POC ABG pCO2 41.3 (35-45) 03/30/18 13:31 POC ABG pO2 84 (80-105) 03/30/18 13:31 POC ABG HCO3 22.7 03/30/18 13:31 POC ABG Total CO2 24 03/30/18 13:31 POC ABG O2 Sat 96 03/30/18 13:31 Abnormal lab findings: Abnormal Labs 03/28/18 03/28/18 03/28/18 22:03 22:03 22:03 WBC 13.5 H RBC Hgb Lymph % (Auto) 9.0 L [place] % (Auto) [place] # Seg Neutrophils % 83.4 H Seg Neutrophils # 11.2 H POC ABG pH POC ABG pO2 Sodium 136 L Potassium 3.2 L Carbon Dioxide 20 L Creatinine Glucose POC Glucose Calcium Magnesium Salicylates < 0.3 L Acetaminophen 03/28/18 03/28/18 03/29/18 22:03 23:20 04:59 WBC RBC Hgb Lymph % (Auto) [place] % (Auto) [place] # Seg Neutrophils % Seg Neutrophils # POC ABG pH POC ABG pO2 173 H 124 H Sodium Potassium Carbon Dioxide Creatinine Glucose POC Glucose Calcium Magnesium Salicylates Acetaminophen < 5.0 L 03/29/18 03/29/18 03/29/18 16:15 19:31 22:03 WBC RBC Hgb Lymph % (Auto) [place] % (Auto) [place] # Seg Neutrophils % Seg Neutrophils # POC ABG pH POC ABG pO2 115 H Sodium Potassium Carbon Dioxide Creatinine Glucose POC Glucose 111 H Calcium Magnesium 1.60 L Salicylates Acetaminophen 03/30/18 03/30/18 03/30/18 05:45 05:45 11:22 WBC RBC 3.51 L Hgb 10.0 L Lymph % (Auto) [place] % (Auto) 12.8 H [place] # 1.4 H Seg Neutrophils % Seg Neutrophils # POC ABG pH POC ABG pO2 Sodium Potassium Carbon Dioxide Creatinine Glucose 129 H POC Glucose 122 H Calcium 8.0 L Magnesium 1.60 L Salicylates Acetaminophen 03/30/18 04/02/18 13:31 10:35 WBC RBC Hgb Lymph % (Auto) [place] % (Auto) [place] # Seg Neutrophils % Seg Neutrophils # POC ABG pH 7.349 L POC ABG pO2 Sodium 133 L Potassium 3.3 L Carbon Dioxide 20 L Creatinine 0.5 L Glucose 118 H POC Glucose Calcium Magnesium Salicylates Acetaminophen Chest x-ray: image reviewed (small volume LLL atelectatic area) Allied health notes reviewed: nursing
[2018-04-02] MEDS ORDERED: POTASSIUM CHLORIDE FEEDTUBE ONE (18:00)
[2018-04-02] MEDS: PEPCID PO SCH (23:11)
[2018-04-03 07:55] LABS: BUN/Creatinine Ratio 10; Blood Urea Nitrogen 5 mg/dL (7-17); Calcium 9.3 mg/dL (8.4-10.2); Hemolysis Index 1
[2018-04-03] MEDS: LEVAQUIN 750MG/150ML 750 MG/150 ML BAG IV SCH (09:53)
[2018-04-03] MEDS: PEPCID PO SCH ×2 (09:53→22:07)
[2018-04-03] MEDS: LOVENOX SUB-Q SCH (09:53)
[2018-04-03] MEDS: SODIUM CHLORIDE FLUSH SYRINGE 10 ML IV SCH (09:54)
--- NOTE | 2018-04-03 13:08 | Consultation ---
History of Present Illness - Reason for Consult Consult date: 04/03/18 Reason for consult: Psychiatry Follow-up Requesting physician: YAMILET TREADWELL - Chief Complaint Chief complaint: "I was wrong for doing what I did" - History of Present Psychiatric Illness 33-year-old female presents emergency room with a suicide attempt by overdose. Today the patient is calm and cooperative during the assessment. She stated that she has a hx of depression and took Zoloft that was working. She stated that she stop taking the medication because she got better "mentally." She stated that she overdosed on several different sleeping pills because she is having marital issues. She stated that her will be filing for divorce. She stated that her marriage is ending because she was "cheating." She stated that they have been for the past year. She stated she is aware that her actions has caused all her issues. She stated that she would like to continue to take Zoloft and speak with a therapist. She denies SI/HI's and AVH's. She denies any manic episodes in the past. She denies erratic sleep and a poor appetite. She denies alcohol consumption (etoh). Medications and Allergies Allergies Allergy/AdvReac Type Severity Reaction Status Date / Time No Known Allergies Allergy Unverified 03/28/18 21:41 Active Meds: Active Medications Acetaminophen (Tylenol) 650 mg MD Q6H PRN PRN Reason: Fever >101 Acetaminophen (Tylenol) 650 mg FEEDTUBE Q6H PRN PRN Reason: Pain MILD(1-3)/Fever >100.5/JANG Benzonatate (Tessalon Perles) 100 mg PO Q8HR PRN PRN Reason: Cough Last Admin: 04/02/18 23:11 Dose: 100 mg Enoxaparin Sodium (Lovenox) 40 mg SUB-Q QDAY [facility] Last Admin: 04/03/18 09:53 Dose: 40 mg Famotidine (Pepcid) 20 mg PO BID [facility] Last Admin: 04/03/18 09:53 Dose: 20 mg Hydrophilic Ointment (Vaseline Lip Therapy) 1 applic TP Q2HR PRN PRN Reason: Dry Lips Levofloxacin/Dextrose (Levaquin 750mg/150ml) 750 mg in 150 mls @ 100 mls/hr IV Q24HR [facility]; Protocol Last Admin: 04/03/18 09:53 Dose: 100 mls/hr Multi-Ingred Cream/Lotion/Oil/Oint (Artificial Tears Ophth Oint) 1 applic OU Q4HR PRN PRN Reason: Dry Eye(s) Ondansetron HCl (Zofran) 4 mg IV Q8H PRN PRN Reason: Nausea And Vomiting Sodium Chloride (Sodium Chloride Flush Syringe 10 Ml) 10 ml IV BID JASON Last Admin: 04/03/18 09:54 Dose: 10 ml Sodium Chloride (Sodium Chloride Flush Syringe 10 Ml) 10 ml IV PRN PRN PRN Reason: LINE FLUSH Past psychiatric history - Past Medical History Past Medical History: No medical history Past Surgical History: No surgical history - past Psychiatric treatment and history psychiatric treatment history: Hx of depression. Denies a fam psy hx. Mental Status Exam - Vital signs Last Vital Signs Temp 98.2 F 04/03/18 11:30 Pulse 87 04/03/18 11:30 Resp 18 04/03/18 11:30 BP 128/89 04/03/18 11:30 Pulse Ox 98 04/03/18 11:30 - Exam Narrative exam: MSE: Appearance: calm, cooperative Behavior: regular eye contact Speech: regular rate and tone Mood: "okay" Affect: flat Thought Process: circumstantial Thought Content: denies SI/HI's and AVH's Motor Activity: lying in bed Cognition: A/O x 3 Insight: fair Judgment: variable Results Result Diagrams: 04/02/18 10:35 04/03/18 06:39 Abnormal lab results 04/03/18 Range/Units 06:39 BUN 5 L (7-17) mg/dL Creatinine 0.5 L (0.7-1.2) mg/dL All other labs normal. Assessment and Plan Assessment and plan: Impression: MDD, Severe Type. Cannabis Use DO. Today the patient is calm and cooperative during the assessment. DDx: R/O Bipolar DO Recommendation/Plan: Continue 1013 with placement to inpatient psy services. Start Zoloft 25 mg PO daily for depression. Discussed possible suicidality/ medication induced jennifer with the patient reference Zoloft. Discussed generalized coping skills with the patient.
--- NOTE | 2018-04-03 14:19 | Progress Note ---
Assessment and Plan Assessment and plan: Acute toxic encephalopathy secondary to drug overdose -Patient was intubated for airway protection, now extubated -Mental status improved extensive counseling greater than 15 minutes presented to the patient Drug overdose (OCT Aleve and sleeping pills) -S/p activated charcoal and on benzo drip for seizure prophylaxis as recommended by poison control -Salicylates and acetaminophen levels normal -Continued 1013 -Pending psych evaluation -Prior history of suicidal attempt when patient was age 14. Pneumonia left lower lobe. Continue Levaquin UTI with enterococcus. levaquin - Hypokalemia, Resolved. Hypomagnesemia Resolved DVT prophylaxis with Lovenox. Full code status. She is medically clear for discharge to Psych facility. History Interval history: Patient with drug overdose, less cough Hospitalist Physical - Physical exam Narrative exam: GEN:Not in acute distress, lying in bed HEENT: Normocephalic, atraumatic, Neck: supple, No JVD Lungs: Clear to auscultaion bilaterally, no crackles Heart:S1 and S2 reg, no murmurs, rubs or gallop Abd:soft, non-tender, non-distended, Normal bowel sounds Ext: No edema, clubbing or cyanosis Neuro: Awake, alert, oriented X 3, Moves all extremities - Constitutional Vitals: Temp Pulse Resp BP Pulse Ox 98.2 F 87 18 128/89 98 04/03/18 11:30 04/03/18 11:30 04/03/18 11:30 04/03/18 11:30 04/03/18 11:30 General appearance: Present: no acute distress, other (patient is intubated and sedated) Results - Labs CBC & Chem 7: 04/02/18 10:35 04/03/18 06:39 Labs: Laboratory Last Values WBC 7.4 K/mm3 (4.5-11.0) 04/02/18 10:35 RBC 4.10 M/mm3 (3.65-5.03) 04/02/18 10:35 Hgb 12.0 gm/dl (10.1-14.3) 04/02/18 10:35 Hct 35.1 % (30.3-42.9) 04/02/18 10:35 MCV 86 fl (79-97) 04/02/18 10:35 MCH 29 pg (28-32) 04/02/18 10:35 MCHC 34 % (30-34) 04/02/18 10:35 RDW 14.1 % (13.2-15.2) 04/02/18 10:35 Plt Count 336 K/mm3 (140-440) 04/02/18 10:35 Lymph % (Auto) 17.0 % (13.4-35.0) 03/30/18 05:45 [place] % (Auto) 12.8 % (0.0-7.3) H 03/30/18 05:45 Eos % (Auto) 2.5 % (0.0-4.3) 03/30/18 05:45 Baso % (Auto) 0.3 % (0.0-1.8) 03/30/18 05:45 Lymph # 1.8 K/mm3 (1.2-5.4) 03/30/18 05:45 [place] # 1.4 K/mm3 (0.0-0.8) H 03/30/18 05:45 Eos # 0.3 K/mm3 (0.0-0.4) 03/30/18 05:45 Baso # 0.0 K/mm3 (0.0-0.1) 03/30/18 05:45 Seg Neutrophils % 67.4 % (40.0-70.0) 03/30/18 05:45 Seg Neutrophils # 7.1 K/mm3 (1.8-7.7) 03/30/18 05:45 POC ABG pH 7.349 (7.35-7.45) L 03/30/18 13:31 POC ABG pCO2 41.3 (35-45) 03/30/18 13:31 POC ABG pO2 84 (80-105) 03/30/18 13:31 POC ABG HCO3 22.7 03/30/18 13:31 POC ABG Total CO2 24 03/30/18 13:31 POC ABG O2 Sat 96 03/30/18 13:31 POC ABG Base Excess -3 03/30/18 13:31 FiO2 25 % 03/30/18 13:31 Sodium 138 mmol/L (137-145) 04/03/18 06:39 Potassium 3.7 mmol/L (3.6-5.0) 04/03/18 06:39 Chloride 101.6 mmol/L (98-107) 04/03/18 06:39 Carbon Dioxide 24 mmol/L (22-30) 04/03/18 06:39 Anion Gap 16 mmol/L 04/03/18 06:39 BUN 5 mg/dL (7-17) L 04/03/18 06:39 Creatinine 0.5 mg/dL (0.7-1.2) L 04/03/18 06:39 Estimated GFR > 60 ml/min 04/03/18 06:39 BUN/Creatinine Ratio 10 % 04/03/18 06:39 Glucose 88 mg/dL (65-100) 04/03/18 06:39 POC Glucose 122 (70-105) H 03/30/18 11:22 Calcium 9.3 mg/dL (8.4-10.2) 04/03/18 06:39 Magnesium 1.70 mg/dL (1.7-2.3) 04/02/18 05:48 Total Bilirubin 0.20 mg/dL (0.1-1.2) 03/28/18 22:03 AST 23 units/L (5-40) 03/28/18 22:03 ALT 12 units/L (7-56) 03/28/18 22:03 Alkaline Phosphatase 83 units/L (35-129) 03/28/18 22:03 Total Protein 7.7 g/dL (6.3-8.2) 03/28/18 22:03 Albumin 3.9 g/dL (3.9-5) 03/28/18 22:03 Albumin/Globulin Ratio 1.0 % 03/28/18 22:03 Urine Color Yellow (Yellow) 03/28/18 22:31 Urine Turbidity Slightly-cloudy (Clear) 03/28/18 22:31 Urine pH 5.0 (5.0-7.0) 03/28/18 22:31 Ur Specific [place] 1.019 (1.003-1.030) 03/28/18 22:31 Urine Protein 100 mg/dl mg/dL (Negative) 03/28/18 22:31 Urine Glucose (UA) Neg mg/dL (Negative) 03/28/18 22:31 Urine Ketones 20 mg/dL (Negative) 03/28/18 22:31 Urine Blood Neg (Negative) 03/28/18 22:31 Urine Nitrite Neg (Negative) 03/28/18 22:31 Ur Reducing Substances Not Reportable 03/28/18 22:31 Urine Bilirubin Neg (Negative) 03/28/18 22:31 Urine Ictotest Not Reportable 03/28/18 22:31 Urine Urobilinogen < 2.0 mg/dL (<2.0) 03/28/18 22:31 Ur Leukocyte Esterase Neg (Negative) 03/28/18 22:31 Urine WBC (Auto) 2.0 /HPF (0.0-6.0) 03/28/18 22:31 Urine RBC (Auto) 3.0 /HPF (0.0-6.0) 03/28/18 22:31 U Epithel Cells (Auto) 1.0 /HPF (0-13.0) 03/28/18 22:31 Urine Mucus Few /HPF 03/28/18 22:31 Urine HCG, Qual Negative (Negative) 03/28/18 22:31 Salicylates < 0.3 mg/dL (2.8-20.0) L 03/28/18 22:03 Urine Opiates Screen Presumptive negative 03/29/18 21:05 Urine Methadone Screen Presumptive negative 03/29/18 21:05 Acetaminophen < 5.0 ug/mL (10.0-30.0) L 03/28/18 22:03 Ur Barbiturates Screen Presumptive negative 03/29/18 21:05 Ur Phencyclidine Scrn Presumptive negative 03/29/18 21:05 Ur Amphetamines Screen Presumptive negative 03/29/18 21:05 U Benzodiazepines Scrn Presumptive positive 03/29/18 21:05 Urine Cocaine Screen Presumptive negative 03/29/18 21:05 U Marijuana (THC) Screen Presumptive positive 03/29/18 21:05 Drugs of Abuse Note Disclamer 03/29/18 21:05 Plasma/Serum Alcohol < 0.01 % (0-0.07) 03/28/18 22:03
--- NOTE | 2018-04-03 14:27 | Event Note ---
Date: 04/03/18 Patient is medically stable for discharge to [facility] facility
[2018-04-03] MEDS: ZOLOFT PO SCH (17:16)
--- NOTE | 2018-04-03 19:30 | Progress Note ---
Assessment and Plan Patient alert, awake.Oriented. No complaint of chest pain,shortness of breath.O2 saturation 99% on room air. - Patient Problems (1) Overdose Current Visit: Yes Status: Acute Plan to address problem: Patient alert, awake and oriented. No respiratory distress. O2 saturation 99% on room air. (2) Unresponsive Current Visit: Yes Status: Acute Plan to address problem: Improved. Patient alert, awake and oriented now. Subjective Date of service: 04/03/18 Principal diagnosis: Acute Respiratory Failure; Drug OD; Suicide Attempt Interval history: Patient alert, awake.Oriented. No complaint of chest pain,shortness of breath.O2 saturation 99% on room air. Objective Vital Signs - 12hr 04/03/18 04/03/18 04/03/18 10:41 11:30 17:34 Temperature 98.2 F 98.3 F Pulse Rate 87 96 H Respiratory 18 18 Rate Blood Pressure 128/89 133/90 [Left] O2 Sat by Pulse 100 98 99 Oximetry Constitutional: no acute distress, alert Eyes: non-icteric ENT: oropharynx moist, other (ETT 23 cm DAGO) Neck: supple, no JVD, other (No thyromegaly) Effort: mildly labored Ascultation: Bilateral: clear Percussion: Bilateral: not dull Cardiovascular: regular rate and rhythm, other (No R/M) Gastrointestinal: normoactive bowel sounds, soft, non-tender, non-distended, other (No palpable HSM) Integumentary: normal Extremities: no cyanosis, no edema, pulses normal, no ischemia or petechiae Neurologic: non-focal exam, pupils equal and round, CN II-XII normal, motor strength normal and Psychiatric: depressed CBC and BMP: 04/02/18 10:35 04/03/18 06:39 ABG, PT/INR, D-dimer: ABG POC ABG pH 7.349 (7.35-7.45) L 03/30/18 13:31 POC ABG pCO2 41.3 (35-45) 03/30/18 13:31 POC ABG pO2 84 (80-105) 03/30/18 13:31 POC ABG HCO3 22.7 03/30/18 13:31 POC ABG Total CO2 24 03/30/18 13:31 POC ABG O2 Sat 96 03/30/18 13:31 Abnormal lab findings: Abnormal Labs 03/28/18 03/28/18 03/28/18 22:03 22:03 22:03 WBC 13.5 H RBC Hgb Lymph % (Auto) 9.0 L [place] % (Auto) [place] # Seg Neutrophils % 83.4 H Seg Neutrophils # 11.2 H POC ABG pH POC ABG pO2 Sodium 136 L Potassium 3.2 L Carbon Dioxide 20 L BUN Creatinine Glucose POC Glucose Calcium Magnesium Salicylates < 0.3 L Acetaminophen 03/28/18 03/28/18 03/29/18 22:03 23:20 04:59 WBC RBC Hgb Lymph % (Auto) [place] % (Auto) [place] # Seg Neutrophils % Seg Neutrophils # POC ABG pH POC ABG pO2 173 H 124 H Sodium Potassium Carbon Dioxide BUN Creatinine Glucose POC Glucose Calcium Magnesium Salicylates Acetaminophen < 5.0 L 03/29/18 03/29/18 03/29/18 16:15 19:31 22:03 WBC RBC Hgb Lymph % (Auto) [place] % (Auto) [place] # Seg Neutrophils % Seg Neutrophils # POC ABG pH POC ABG pO2 115 H Sodium Potassium Carbon Dioxide BUN Creatinine Glucose POC Glucose 111 H Calcium Magnesium 1.60 L Salicylates Acetaminophen 03/30/18 03/30/18 03/30/18 05:45 05:45 11:22 WBC RBC 3.51 L Hgb 10.0 L Lymph % (Auto) [place] % (Auto) 12.8 H [place] # 1.4 H Seg Neutrophils % Seg Neutrophils # POC ABG pH POC ABG pO2 Sodium Potassium Carbon Dioxide BUN Creatinine Glucose 129 H POC Glucose 122 H Calcium 8.0 L Magnesium 1.60 L Salicylates Acetaminophen 03/30/18 04/02/18 04/03/18 13:31 10:35 06:39 WBC RBC Hgb Lymph % (Auto) [place] % (Auto) [place] # Seg Neutrophils % Seg Neutrophils # POC ABG pH 7.349 L POC ABG pO2 Sodium 133 L Potassium 3.3 L Carbon Dioxide 20 L BUN 5 L Creatinine 0.5 L 0.5 L Glucose 118 H POC Glucose Calcium Magnesium Salicylates Acetaminophen Chest x-ray: report reviewed (Question of subsegmental Atelectasis.), image reviewed Allied health notes reviewed: nursing
[2018-04-03] MEDS: ROBITUSSIN PO PRN (22:07)
[2018-04-03] MEDS: TESSALON PERLES PO PRN (22:07)
[2018-04-04] MEDS: SODIUM CHLORIDE FLUSH SYRINGE 10 ML IV SCH ×3 (06:27→10:14)
[2018-04-04] MEDS: LEVAQUIN 750MG/150ML 750 MG/150 ML BAG IV SCH (10:11)
[2018-04-04] MEDS: LOVENOX SUB-Q SCH (10:12)
[2018-04-04] MEDS: PEPCID PO SCH ×2 (10:13→22:54)
[2018-04-04] MEDS: ZOLOFT PO SCH (10:15)
--- NOTE | 2018-04-04 13:29 | Progress Note ---
Subjective - Reason for Consult Consult date: 04/04/18 Reason for consult: Psychiatry Follow-up - Chief Complaint Chief complaint: "It's been tough" 33-year-old female presents emergency room with a suicide attempt by overdose. Today the patient is calm and cooperative during the assessment. She stated that her priority is making better decisions for her future. She stated that "life" can be humbling. She denies SI/HI's and AVH's. She denies any side effects of her medication. Mental Status Exam - Vital signs Last Vital Signs Temp 98.5 F 04/04/18 12:44 Pulse 80 04/04/18 12:44 Resp 20 04/04/18 12:44 BP 123/83 04/04/18 12:44 Pulse Ox 98 04/04/18 12:44 - Exam Narrative exam: MSE: Appearance: calm, cooperative Behavior: regular eye contact Speech: regular rate and tone Mood: "okay" Affect: congruent to mood Thought Process: circumstantial Thought Content: denies SI/HI's and AVH's Motor Activity: lying in bed Cognition: A/O x 3 Insight: fair Judgment: fair Assessment and Plan Impression: MDD, Severe Type. Cannabis Use DO. Today the patient is calm and cooperative during the assessment. DDx: R/O Bipolar DO Recommendation/Plan: The patient's 1013 had to be extended. Placement for inpatient psy services is still ongoing. Continue Zoloft 25 mg PO daily for depression. Discussed possible suicidality/medication induced jennifer with the patient reference Zoloft. Discussed generalized coping skills with the patient.
[2018-04-04] MEDS: ROBITUSSIN PO PRN (22:53)
[2018-04-04] MEDS: TESSALON PERLES PO PRN (22:54)
--- NOTE | 2018-04-04 23:19 | Progress Note ---
Assessment and Plan Patient sleeping at this time.O2 saturation 97% on room air.No acute respiratory distress. - Patient Problems (1) Overdose Current Visit: Yes Status: Acute Plan to address problem: Patient sleeping at this time. No respiratory distress. O2 saturation 97% on room air. (2) Unresponsive Current Visit: Yes Status: Acute Plan to address problem: Improved. Patient alert, awake and oriented yesterday. Patient sleeping at this time.. Subjective Date of service: 04/04/18 Principal diagnosis: Acute Respiratory Failure; Drug OD; Suicide Attempt Interval history: Patient sleeping at this time.O2 saturation 97% on room air.No acute respiratory distress. Objective Vital Signs - 12hr 04/04/18 04/04/18 04/04/18 12:44 18:01 22:59 Temperature 98.5 F 98.5 F 98.3 F Pulse Rate 80 77 74 Respiratory 20 20 16 Rate Blood Pressure 123/83 138/82 140/87 O2 Sat by Pulse 98 100 97 Oximetry Constitutional: no acute distress, asleep Eyes: non-icteric ENT: oropharynx moist, other (ETT 23 cm DAGO) Neck: supple, no JVD, other (No thyromegaly) Effort: mildly labored Ascultation: Bilateral: diminished breath sounds Percussion: Bilateral: not dull Cardiovascular: regular rate and rhythm, other (No R/M) Gastrointestinal: normoactive bowel sounds, soft, non-tender, non-distended, other (No palpable HSM) Integumentary: normal Extremities: no cyanosis, no edema, pulses normal, no ischemia or petechiae Neurologic: non-focal exam, pupils equal and round, CN II-XII normal Psychiatric: other (sleeping at this time.) CBC and BMP: 04/02/18 10:35 04/03/18 06:39 ABG, PT/INR, D-dimer: ABG POC ABG pH 7.349 (7.35-7.45) L 03/30/18 13:31 POC ABG pCO2 41.3 (35-45) 03/30/18 13:31 POC ABG pO2 84 (80-105) 03/30/18 13:31 POC ABG HCO3 22.7 03/30/18 13:31 POC ABG Total CO2 24 03/30/18 13:31 POC ABG O2 Sat 96 03/30/18 13:31 Abnormal lab findings: Abnormal Labs 03/28/18 03/28/18 03/28/18 22:03 22:03 22:03 WBC 13.5 H RBC Hgb Lymph % (Auto) 9.0 L [place] % (Auto) [place] # Seg Neutrophils % 83.4 H Seg Neutrophils # 11.2 H POC ABG pH POC ABG pO2 Sodium 136 L Potassium 3.2 L Carbon Dioxide 20 L BUN Creatinine Glucose POC Glucose Calcium Magnesium Salicylates < 0.3 L Acetaminophen 03/28/18 03/28/18 03/29/18 22:03 23:20 04:59 WBC RBC Hgb Lymph % (Auto) [place] % (Auto) [place] # Seg Neutrophils % Seg Neutrophils # POC ABG pH POC ABG pO2 173 H 124 H Sodium Potassium Carbon Dioxide BUN Creatinine Glucose POC Glucose Calcium Magnesium Salicylates Acetaminophen < 5.0 L 03/29/18 03/29/18 03/29/18 16:15 19:31 22:03 WBC RBC Hgb Lymph % (Auto) [place] % (Auto) [place] # Seg Neutrophils % Seg Neutrophils # POC ABG pH POC ABG pO2 115 H Sodium Potassium Carbon Dioxide BUN Creatinine Glucose POC Glucose 111 H Calcium Magnesium 1.60 L Salicylates Acetaminophen 03/30/18 03/30/18 03/30/18 05:45 05:45 11:22 WBC RBC 3.51 L Hgb 10.0 L Lymph % (Auto) [place] % (Auto) 12.8 H [place] # 1.4 H Seg Neutrophils % Seg Neutrophils # POC ABG pH POC ABG pO2 Sodium Potassium Carbon Dioxide BUN Creatinine Glucose 129 H POC Glucose 122 H Calcium 8.0 L Magnesium 1.60 L Salicylates Acetaminophen 03/30/18 04/02/18 04/03/18 13:31 10:35 06:39 WBC RBC Hgb Lymph % (Auto) [place] % (Auto) [place] # Seg Neutrophils % Seg Neutrophils # POC ABG pH 7.349 L POC ABG pO2 Sodium 133 L Potassium 3.3 L Carbon Dioxide 20 L BUN 5 L Creatinine 0.5 L 0.5 L Glucose 118 H POC Glucose Calcium Magnesium Salicylates Acetaminophen Allied health notes reviewed: nursing
[2018-04-05] MEDS: SODIUM CHLORIDE FLUSH SYRINGE 10 ML IV SCH ×4 (00:46→21:27)
--- NOTE | 2018-04-05 11:36 | Progress Note ---
Assessment and Plan Assessment and plan: Acute toxic encephalopathy secondary to drug overdose -Patient was intubated for airway protection, now extubated -Mental status improved extensive counseling greater than 15 minutes presented to the patient Drug overdose (OCT Aleve and sleeping pills) -S/p activated charcoal and on benzo drip for seizure prophylaxis as recommended by poison control -Salicylates and acetaminophen levels normal -Continued 1013 -Prior history of suicidal attempt when patient was age 14. Pneumonia left lower lobe. Continue Levaquin UTI with enterococcus. Cont levaquin - Hypokalemia, Resolved. Hypomagnesemia Resolved DVT prophylaxis with Lovenox. Full code status. She is medically clear for discharge to Psych facility. History Interval history: Patient with drug overdose, less cough, No fever Hospitalist Physical - Physical exam Narrative exam: GEN:Not in acute distress, lying in bed HEENT: Normocephalic, atraumatic, Neck: supple, No JVD Lungs: Clear to auscultaion bilaterally, no crackles Heart:S1 and S2 reg, no murmurs, rubs or gallop Abd:soft, non-tender, non-distended, Normal bowel sounds Ext: No edema, clubbing or cyanosis Neuro: Awake, alert, oriented X 3, Moves all extremities - Constitutional Vitals: Temp Pulse Resp BP Pulse Ox 98.5 F 70 16 128/81 94 04/05/18 05:57 04/05/18 05:57 04/05/18 05:57 04/05/18 05:57 04/05/18 05:57 General appearance: Present: no acute distress, other (patient is intubated and sedated) Results - Labs CBC & Chem 7: 04/02/18 10:35 04/03/18 06:39 Labs: Laboratory Last Values WBC 7.4 K/mm3 (4.5-11.0) 04/02/18 10:35 RBC 4.10 M/mm3 (3.65-5.03) 04/02/18 10:35 Hgb 12.0 gm/dl (10.1-14.3) 04/02/18 10:35 Hct 35.1 % (30.3-42.9) 04/02/18 10:35 MCV 86 fl (79-97) 04/02/18 10:35 MCH 29 pg (28-32) 04/02/18 10:35 MCHC 34 % (30-34) 04/02/18 10:35 RDW 14.1 % (13.2-15.2) 04/02/18 10:35 Plt Count 336 K/mm3 (140-440) 04/02/18 10:35 Lymph % (Auto) 17.0 % (13.4-35.0) 03/30/18 05:45 [place] % (Auto) 12.8 % (0.0-7.3) H 03/30/18 05:45 Eos % (Auto) 2.5 % (0.0-4.3) 03/30/18 05:45 Baso % (Auto) 0.3 % (0.0-1.8) 03/30/18 05:45 Lymph # 1.8 K/mm3 (1.2-5.4) 03/30/18 05:45 [place] # 1.4 K/mm3 (0.0-0.8) H 03/30/18 05:45 Eos # 0.3 K/mm3 (0.0-0.4) 03/30/18 05:45 Baso # 0.0 K/mm3 (0.0-0.1) 03/30/18 05:45 Seg Neutrophils % 67.4 % (40.0-70.0) 03/30/18 05:45 Seg Neutrophils # 7.1 K/mm3 (1.8-7.7) 03/30/18 05:45 POC ABG pH 7.349 (7.35-7.45) L 03/30/18 13:31 POC ABG pCO2 41.3 (35-45) 03/30/18 13:31 POC ABG pO2 84 (80-105) 03/30/18 13:31 POC ABG HCO3 22.7 03/30/18 13:31 POC ABG Total CO2 24 03/30/18 13:31 POC ABG O2 Sat 96 03/30/18 13:31 POC ABG Base Excess -3 03/30/18 13:31 FiO2 25 % 03/30/18 13:31 Sodium 138 mmol/L (137-145) 04/03/18 06:39 Potassium 3.7 mmol/L (3.6-5.0) 04/03/18 06:39 Chloride 101.6 mmol/L (98-107) 04/03/18 06:39 Carbon Dioxide 24 mmol/L (22-30) 04/03/18 06:39 Anion Gap 16 mmol/L 04/03/18 06:39 BUN 5 mg/dL (7-17) L 04/03/18 06:39 Creatinine 0.5 mg/dL (0.7-1.2) L 04/03/18 06:39 Estimated GFR > 60 ml/min 04/03/18 06:39 BUN/Creatinine Ratio 10 % 04/03/18 06:39 Glucose 88 mg/dL (65-100) 04/03/18 06:39 POC Glucose 122 (70-105) H 03/30/18 11:22 Calcium 9.3 mg/dL (8.4-10.2) 04/03/18 06:39 Magnesium 1.70 mg/dL (1.7-2.3) 04/02/18 05:48 Total Bilirubin 0.20 mg/dL (0.1-1.2) 03/28/18 22:03 AST 23 units/L (5-40) 03/28/18 22:03 ALT 12 units/L (7-56) 03/28/18 22:03 Alkaline Phosphatase 83 units/L (35-129) 03/28/18 22:03 Total Protein 7.7 g/dL (6.3-8.2) 03/28/18 22:03 Albumin 3.9 g/dL (3.9-5) 03/28/18 22:03 Albumin/Globulin Ratio 1.0 % 03/28/18 22:03 Urine Color Yellow (Yellow) 03/28/18 22:31 Urine Turbidity Slightly-cloudy (Clear) 03/28/18 22:31 Urine pH 5.0 (5.0-7.0) 03/28/18 22:31 Ur Specific [place] 1.019 (1.003-1.030) 03/28/18 22:31 Urine Protein 100 mg/dl mg/dL (Negative) 03/28/18 22:31 Urine Glucose (UA) Neg mg/dL (Negative) 03/28/18 22:31 Urine Ketones 20 mg/dL (Negative) 03/28/18 22:31 Urine Blood Neg (Negative) 03/28/18 22:31 Urine Nitrite Neg (Negative) 03/28/18 22:31 Ur Reducing Substances Not Reportable 03/28/18 22:31 Urine Bilirubin Neg (Negative) 03/28/18 22:31 Urine Ictotest Not Reportable 03/28/18 22:31 Urine Urobilinogen < 2.0 mg/dL (<2.0) 03/28/18 22:31 Ur Leukocyte Esterase Neg (Negative) 03/28/18 22:31 Urine WBC (Auto) 2.0 /HPF (0.0-6.0) 03/28/18 22:31 Urine RBC (Auto) 3.0 /HPF (0.0-6.0) 03/28/18 22:31 U Epithel Cells (Auto) 1.0 /HPF (0-13.0) 03/28/18 22:31 Urine Mucus Few /HPF 03/28/18 22:31 Urine HCG, Qual Negative (Negative) 03/28/18 22:31 Salicylates < 0.3 mg/dL (2.8-20.0) L 03/28/18 22:03 Urine Opiates Screen Presumptive negative 03/29/18 21:05 Urine Methadone Screen Presumptive negative 03/29/18 21:05 Acetaminophen < 5.0 ug/mL (10.0-30.0) L 03/28/18 22:03 Ur Barbiturates Screen Presumptive negative 03/29/18 21:05 Ur Phencyclidine Scrn Presumptive negative 03/29/18 21:05 Ur Amphetamines Screen Presumptive negative 03/29/18 21:05 U Benzodiazepines Scrn Presumptive positive 03/29/18 21:05 Urine Cocaine Screen Presumptive negative 03/29/18 21:05 U Marijuana (THC) Screen Presumptive positive 03/29/18 21:05 Drugs of Abuse Note Disclamer 03/29/18 21:05 Plasma/Serum Alcohol < 0.01 % (0-0.07) 03/28/18 22:03
[2018-04-05] MEDS: LEVAQUIN PO SCH (11:42)
[2018-04-05] MEDS: LOVENOX SUB-Q SCH (11:43)
[2018-04-05] MEDS: PEPCID PO SCH ×2 (11:43→21:26)
[2018-04-05] MEDS: ZOLOFT PO SCH (11:43)
--- NOTE | 2018-04-05 19:49 | Progress Note ---
Subjective - Reason for Consult Consult date: 04/05/18 Reason for consult: follow up - Chief Complaint Chief complaint: "I'm happy to be here." 33-year-old female presents emergency room with a suicide attempt by overdose. Today the patient is calm and cooperative during the assessment. She talked about how she is happy to have another chance and will focus on herself now. She denies SI/HI's and AVH's. She denies any side effects of her medication. Mental Status Exam - Vital signs Last Vital Signs Temp 98.8 F 04/05/18 14:45 Pulse 100 H 04/05/18 14:45 Resp 18 04/05/18 14:45 BP 129/77 04/05/18 14:45 Pulse Ox 98 04/05/18 14:45 - Exam Narrative exam: MSE: Appearance: calm, cooperative Behavior: regular eye contact Speech: regular rate and tone Mood: "good" Affect: congruent to mood Thought Process: circumstantial Thought Content: denies SI/HI's and AVH's Motor Activity: lying in bed Cognition: A/O x 3 Insight: fair Judgment: fair Assessment and Plan Impression: MDD, Severe Type. Cannabis Use DO. Today the patient is calm and cooperative during the assessment. DDx: R/O Bipolar DO Recommendation/Plan: Continue 1013. Placement for inpatient psy services is still ongoing. Continue Zoloft 25 mg PO daily for depression.
[2018-04-05] MEDS: ROBITUSSIN PO PRN (21:30)
[2018-04-05] MEDS: TESSALON PERLES PO PRN (21:30)
--- NOTE | 2018-04-05 23:39 | Progress Note ---
Assessment and Plan Patient sleeping at this time.O2 saturation 98% on room air.No acute respiratory distress. - Patient Problems (1) Overdose Current Visit: Yes Status: Acute Plan to address problem: Patient sleeping at this time. No respiratory distress. O2 saturation 98% on room air. (2) Unresponsive Current Visit: Yes Status: Acute Plan to address problem: Improved. Patient alert, awake and oriented couple of days ago.. Patient sleeping at this time.. Subjective Date of service: 04/05/18 Principal diagnosis: Acute Respiratory Failure; Drug OD; Suicide Attempt Interval history: Patient sleeping at this time.O2 saturation 98% on room air.No acute respiratory distress. Objective Vital Signs - 12hr 04/05/18 04/05/18 04/05/18 12:15 14:45 22:00 Temperature 98.2 F 98.8 F Pulse Rate 89 100 H Pulse Rate [ 90 Right Radial] Respiratory 20 18 17 Rate Blood Pressure 118/82 129/77 [Left] O2 Sat by Pulse 100 98 Oximetry Constitutional: no acute distress, asleep Eyes: non-icteric ENT: oropharynx moist, other (ETT 23 cm DAGO) Neck: supple, no JVD, other (No thyromegaly) Effort: mildly labored Ascultation: Bilateral: diminished breath sounds Percussion: Bilateral: not dull Cardiovascular: regular rate and rhythm, other (No R/M) Gastrointestinal: normoactive bowel sounds, soft, non-tender, non-distended, other (No palpable HSM) Integumentary: normal Extremities: no cyanosis, no edema, pulses normal, no ischemia or petechiae Neurologic: non-focal exam, pupils equal and round, CN II-XII normal Psychiatric: other (sleeping at this time.) CBC and BMP: 04/02/18 10:35 04/03/18 06:39 ABG, PT/INR, D-dimer: ABG POC ABG pH 7.349 (7.35-7.45) L 03/30/18 13:31 POC ABG pCO2 41.3 (35-45) 03/30/18 13:31 POC ABG pO2 84 (80-105) 03/30/18 13:31 POC ABG HCO3 22.7 03/30/18 13:31 POC ABG Total CO2 24 03/30/18 13:31 POC ABG O2 Sat 96 03/30/18 13:31 Abnormal lab findings: Abnormal Labs 03/28/18 03/28/18 03/28/18 22:03 22:03 22:03 WBC 13.5 H RBC Hgb Lymph % (Auto) 9.0 L [place] % (Auto) [place] # Seg Neutrophils % 83.4 H Seg Neutrophils # 11.2 H POC ABG pH POC ABG pO2 Sodium 136 L Potassium 3.2 L Carbon Dioxide 20 L BUN Creatinine Glucose POC Glucose Calcium Magnesium Salicylates < 0.3 L Acetaminophen 03/28/18 03/28/18 03/29/18 22:03 23:20 04:59 WBC RBC Hgb Lymph % (Auto) [place] % (Auto) [place] # Seg Neutrophils % Seg Neutrophils # POC ABG pH POC ABG pO2 173 H 124 H Sodium Potassium Carbon Dioxide BUN Creatinine Glucose POC Glucose Calcium Magnesium Salicylates Acetaminophen < 5.0 L 03/29/18 03/29/18 03/29/18 16:15 19:31 22:03 WBC RBC Hgb Lymph % (Auto) [place] % (Auto) [place] # Seg Neutrophils % Seg Neutrophils # POC ABG pH POC ABG pO2 115 H Sodium Potassium Carbon Dioxide BUN Creatinine Glucose POC Glucose 111 H Calcium Magnesium 1.60 L Salicylates Acetaminophen 03/30/18 03/30/18 03/30/18 05:45 05:45 11:22 WBC RBC 3.51 L Hgb 10.0 L Lymph % (Auto) [place] % (Auto) 12.8 H [place] # 1.4 H Seg Neutrophils % Seg Neutrophils # POC ABG pH POC ABG pO2 Sodium Potassium Carbon Dioxide BUN Creatinine Glucose 129 H POC Glucose 122 H Calcium 8.0 L Magnesium 1.60 L Salicylates Acetaminophen 03/30/18 04/02/18 04/03/18 13:31 10:35 06:39 WBC RBC Hgb Lymph % (Auto) [place] % (Auto) [place] # Seg Neutrophils % Seg Neutrophils # POC ABG pH 7.349 L POC ABG pO2 Sodium 133 L Potassium 3.3 L Carbon Dioxide 20 L BUN 5 L Creatinine 0.5 L 0.5 L Glucose 118 H POC Glucose Calcium Magnesium Salicylates Acetaminophen Allied health notes reviewed: nursing
[2018-04-06] MEDS: LEVAQUIN PO SCH (09:28)
[2018-04-06] MEDS: ZOLOFT PO SCH (09:28)
[2018-04-06] MEDS: PEPCID PO SCH ×2 (09:28→22:21)
[2018-04-06] MEDS: LOVENOX SUB-Q SCH (09:28)
[2018-04-06] MEDS: SODIUM CHLORIDE FLUSH SYRINGE 10 ML IV SCH ×2 (09:39→22:21)
--- NOTE | 2018-04-06 14:58 | Progress Note ---
Subjective - Reason for Consult Consult date: 04/06/18 Reason for consult: Psychiatric Follow-up Evaluation - Chief Complaint Chief complaint: "I'm good." Patient is a 33-year-old female that presents to the emergency room after a suicide attempt by overdose. Today the patient is calm and cooperative during the assessment. She talked about how happy she is to have another chance at life and will focus on herself now. She states, " I'm good. I'm here because I took some pills. I got caught up in my lies. I lost myself in infidelity. " She reports good sleep and appetite. She denies depressed mood. She denies SI/HI's, AVH's, and delusions. Patient reports medication compliance. She denies any side effects of her medication. Mental Status Exam - Vital signs Last Vital Signs Temp 98.3 F 04/06/18 12:56 Pulse 100 H 04/06/18 12:56 Resp 18 04/06/18 12:56 BP 141/87 04/06/18 12:56 Pulse Ox 99 04/06/18 12:56 - Exam Narrative exam: Mental Status Exam General Appearance: Casually Dressed-hospital gown Eye Contact: Intermittent Orientation: Alert and oriented x 4 ( person, place, time, date, and situation) Attitude/Behavior: Cooperative Sensorium: Clear Psychomotor & Musculoskeletal Activity: Sitting up in bed Mood: " I'm good." Affect: Constricted Speech/Language: Normal rate and tone Thought Processes: Circumstantial Thought Content: Reality Oriented Perception: Patient denies A/V/T hallucinations Concentration/Attention: Intact Suicidal Ideations/Plan: Patient denies. Homicidal Ideations/Plan: Patient denies. Judgment: Fair to poor Insight: Fair to poor Assessment and Plan Impression: MDD, Severe Type. Cannabis Use DO. Today the patient is calm and cooperative during the assessment. She denies SI/HI's, A/VH's, and delusions. DDx: R/O Bipolar DO Recommendation/Plan: 1. Continue 1013 with placement to inpatient psychiatric services. 2. Continue Zoloft 25 mg PO daily for depression. Discussed possible suicidality. Patient verbalizes full understanding. 3. Will monitor mood, sleep, appetite, compliance, and side effects.
--- NOTE | 2018-04-06 18:33 | Progress Note ---
Assessment and Plan Assessment and plan: Acute toxic encephalopathy secondary to drug overdose -Patient was intubated for airway protection, now extubated -Mental status improved extensive counseling greater than 15 minutes presented to the patient Drug overdose (OCT Aleve and sleeping pills) -S/p activated charcoal and on benzo drip for seizure prophylaxis as recommended by poison control -Salicylates and acetaminophen levels normal -Continued 1013 -Prior history of suicidal attempt when patient was age 14. Pneumonia left lower lobe. Continue Levaquin UTI with Enterococcus Cont levaquin - Hypokalemia, Resolved. Hypomagnesemia Resolved DVT prophylaxis with Lovenox. Full code status. She is medically clear for discharge to Psych facility. History Interval history: Patient with drug overdose, less cough, No fever Hospitalist Physical - Physical exam Narrative exam: GEN:Not in acute distress, lying in bed HEENT: Normocephalic, atraumatic, Neck: supple, No JVD Lungs: Clear to auscultaion bilaterally, no crackles Heart:S1 and S2 reg, no murmurs, rubs or gallop Abd:soft, non-tender, non-distended, Normal bowel sounds Ext: No edema, clubbing or cyanosis Neuro: Awake, alert, oriented X 3, Moves all extremities - Constitutional Vitals: Temp Pulse Resp BP Pulse Ox 98.0 F 82 18 122/78 98 04/06/18 17:49 04/06/18 17:49 04/06/18 17:49 04/06/18 17:49 04/06/18 17:49 General appearance: Present: no acute distress Results - Labs CBC & Chem 7: 04/02/18 10:35 04/03/18 06:39 Labs: Laboratory Last Values WBC 7.4 K/mm3 (4.5-11.0) 04/02/18 10:35 RBC 4.10 M/mm3 (3.65-5.03) 04/02/18 10:35 Hgb 12.0 gm/dl (10.1-14.3) 04/02/18 10:35 Hct 35.1 % (30.3-42.9) 04/02/18 10:35 MCV 86 fl (79-97) 04/02/18 10:35 MCH 29 pg (28-32) 04/02/18 10:35 MCHC 34 % (30-34) 04/02/18 10:35 RDW 14.1 % (13.2-15.2) 04/02/18 10:35 Plt Count 336 K/mm3 (140-440) 04/02/18 10:35 Lymph % (Auto) 17.0 % (13.4-35.0) 03/30/18 05:45 [place] % (Auto) 12.8 % (0.0-7.3) H 03/30/18 05:45 Eos % (Auto) 2.5 % (0.0-4.3) 03/30/18 05:45 Baso % (Auto) 0.3 % (0.0-1.8) 03/30/18 05:45 Lymph # 1.8 K/mm3 (1.2-5.4) 03/30/18 05:45 [place] # 1.4 K/mm3 (0.0-0.8) H 03/30/18 05:45 Eos # 0.3 K/mm3 (0.0-0.4) 03/30/18 05:45 Baso # 0.0 K/mm3 (0.0-0.1) 03/30/18 05:45 Seg Neutrophils % 67.4 % (40.0-70.0) 03/30/18 05:45 Seg Neutrophils # 7.1 K/mm3 (1.8-7.7) 03/30/18 05:45 POC ABG pH 7.349 (7.35-7.45) L 03/30/18 13:31 POC ABG pCO2 41.3 (35-45) 03/30/18 13:31 POC ABG pO2 84 (80-105) 03/30/18 13:31 POC ABG HCO3 22.7 03/30/18 13:31 POC ABG Total CO2 24 03/30/18 13:31 POC ABG O2 Sat 96 03/30/18 13:31 POC ABG Base Excess -3 03/30/18 13:31 FiO2 25 % 03/30/18 13:31 Sodium 138 mmol/L (137-145) 04/03/18 06:39 Potassium 3.7 mmol/L (3.6-5.0) 04/03/18 06:39 Chloride 101.6 mmol/L (98-107) 04/03/18 06:39 Carbon Dioxide 24 mmol/L (22-30) 04/03/18 06:39 Anion Gap 16 mmol/L 04/03/18 06:39 BUN 5 mg/dL (7-17) L 04/03/18 06:39 Creatinine 0.5 mg/dL (0.7-1.2) L 04/03/18 06:39 Estimated GFR > 60 ml/min 04/03/18 06:39 BUN/Creatinine Ratio 10 % 04/03/18 06:39 Glucose 88 mg/dL (65-100) 04/03/18 06:39 POC Glucose 122 (70-105) H 03/30/18 11:22 Calcium 9.3 mg/dL (8.4-10.2) 04/03/18 06:39 Magnesium 1.70 mg/dL (1.7-2.3) 04/02/18 05:48 Total Bilirubin 0.20 mg/dL (0.1-1.2) 03/28/18 22:03 AST 23 units/L (5-40) 03/28/18 22:03 ALT 12 units/L (7-56) 03/28/18 22:03 Alkaline Phosphatase 83 units/L (35-129) 03/28/18 22:03 Total Protein 7.7 g/dL (6.3-8.2) 03/28/18 22:03 Albumin 3.9 g/dL (3.9-5) 03/28/18 22:03 Albumin/Globulin Ratio 1.0 % 03/28/18 22:03 Urine Color Yellow (Yellow) 03/28/18 22:31 Urine Turbidity Slightly-cloudy (Clear) 03/28/18 22:31 Urine pH 5.0 (5.0-7.0) 03/28/18 22:31 Ur Specific [place] 1.019 (1.003-1.030) 03/28/18 22:31 Urine Protein 100 mg/dl mg/dL (Negative) 03/28/18 22:31 Urine Glucose (UA) Neg mg/dL (Negative) 03/28/18 22:31 Urine Ketones 20 mg/dL (Negative) 03/28/18 22:31 Urine Blood Neg (Negative) 03/28/18 22:31 Urine Nitrite Neg (Negative) 03/28/18 22:31 Ur Reducing Substances Not Reportable 03/28/18 22:31 Urine Bilirubin Neg (Negative) 03/28/18 22:31 Urine Ictotest Not Reportable 03/28/18 22:31 Urine Urobilinogen < 2.0 mg/dL (<2.0) 03/28/18 22:31 Ur Leukocyte Esterase Neg (Negative) 03/28/18 22:31 Urine WBC (Auto) 2.0 /HPF (0.0-6.0) 03/28/18 22:31 Urine RBC (Auto) 3.0 /HPF (0.0-6.0) 03/28/18 22:31 U Epithel Cells (Auto) 1.0 /HPF (0-13.0) 03/28/18 22:31 Urine Mucus Few /HPF 03/28/18 22:31 Urine HCG, Qual Negative (Negative) 03/28/18 22:31 Salicylates < 0.3 mg/dL (2.8-20.0) L 03/28/18 22:03 Urine Opiates Screen Presumptive negative 03/29/18 21:05 Urine Methadone Screen Presumptive negative 03/29/18 21:05 Acetaminophen < 5.0 ug/mL (10.0-30.0) L 03/28/18 22:03 Ur Barbiturates Screen Presumptive negative 03/29/18 21:05 Ur Phencyclidine Scrn Presumptive negative 03/29/18 21:05 Ur Amphetamines Screen Presumptive negative 03/29/18 21:05 U Benzodiazepines Scrn Presumptive positive 03/29/18 21:05 Urine Cocaine Screen Presumptive negative 03/29/18 21:05 U Marijuana (THC) Screen Presumptive positive 03/29/18 21:05 Drugs of Abuse Note Disclamer 03/29/18 21:05 Plasma/Serum Alcohol < 0.01 % (0-0.07) 03/28/18 22:03
--- NOTE | 2018-04-06 20:54 | Progress Note ---
Assessment and Plan Patient alert, awake. Resting on room air.O2 saturation 98% .No acute respiratory distress. - Patient Problems (1) Overdose Current Visit: Yes Status: Acute Plan to address problem: Patient alert, awake and oriented. No acute respiratory distress. O2 saturation 98% on room air. Recommend to consult psychiatry.Management as per primary care and psychiatry. (2) Unresponsive Current Visit: Yes Status: Acute Plan to address problem: Improved. Patient alert, awake and oriented . Management as per primary care . (3) Tobacco consumption Current Visit: Yes Status: Acute Plan to address problem: Counselled to stop smoking. Subjective Date of service: 04/06/18 Principal diagnosis: Acute Respiratory Failure; Drug OD; Suicide Attempt Interval history: Patient alert, awake. Resting on room air.O2 saturation 98% .No acute respiratory distress. Objective Vital Signs - 12hr 04/06/18 04/06/18 12:56 17:49 Temperature 98.3 F 98.0 F Pulse Rate 100 H 82 Respiratory 18 18 Rate Blood Pressure 141/87 122/78 O2 Sat by Pulse 99 98 Oximetry Constitutional: no acute distress, alert Eyes: non-icteric ENT: oropharynx moist, other (ETT 23 cm DAGO) Neck: supple, no JVD, other (No thyromegaly) Effort: mildly labored Ascultation: Bilateral: diminished breath sounds Percussion: Bilateral: not dull Cardiovascular: regular rate and rhythm, other (No R/M) Gastrointestinal: normoactive bowel sounds, soft, non-tender, non-distended, other (No palpable HSM) Integumentary: normal Extremities: no cyanosis, no edema, pulses normal, no ischemia or petechiae Neurologic: non-focal exam, pupils equal and round, CN II-XII normal Psychiatric: other (sleeping at this time.) CBC and BMP: 04/02/18 10:35 04/03/18 06:39 ABG, PT/INR, D-dimer: ABG POC ABG pH 7.349 (7.35-7.45) L 03/30/18 13:31 POC ABG pCO2 41.3 (35-45) 03/30/18 13:31 POC ABG pO2 84 (80-105) 03/30/18 13:31 POC ABG HCO3 22.7 03/30/18 13:31 POC ABG Total CO2 24 03/30/18 13:31 POC ABG O2 Sat 96 03/30/18 13:31 Abnormal lab findings: Abnormal Labs 03/28/18 03/28/18 03/28/18 22:03 22:03 22:03 WBC 13.5 H RBC Hgb Lymph % (Auto) 9.0 L Nolan % (Auto) Nolan # Seg Neutrophils % 83.4 H Seg Neutrophils # 11.2 H POC ABG pH POC ABG pO2 Sodium 136 L Potassium 3.2 L Carbon Dioxide 20 L BUN Creatinine Glucose POC Glucose Calcium Magnesium Salicylates < 0.3 L Acetaminophen 03/28/18 03/28/18 03/29/18 22:03 23:20 04:59 WBC RBC Hgb Lymph % (Auto) Nolan % (Auto) Nolan # Seg Neutrophils % Seg Neutrophils # POC ABG pH POC ABG pO2 173 H 124 H Sodium Potassium Carbon Dioxide BUN Creatinine Glucose POC Glucose Calcium Magnesium Salicylates Acetaminophen < 5.0 L 03/29/18 03/29/18 03/29/18 16:15 19:31 22:03 WBC RBC Hgb Lymph % (Auto) Nolan % (Auto) Nolan # Seg Neutrophils % Seg Neutrophils # POC ABG pH POC ABG pO2 115 H Sodium Potassium Carbon Dioxide BUN Creatinine Glucose POC Glucose 111 H Calcium Magnesium 1.60 L Salicylates Acetaminophen 03/30/18 03/30/18 03/30/18 05:45 05:45 11:22 WBC RBC 3.51 L Hgb 10.0 L Lymph % (Auto) Nolan % (Auto) 12.8 H Nolan # 1.4 H Seg Neutrophils % Seg Neutrophils # POC ABG pH POC ABG pO2 Sodium Potassium Carbon Dioxide BUN Creatinine Glucose 129 H POC Glucose 122 H Calcium 8.0 L Magnesium 1.60 L Salicylates Acetaminophen 03/30/18 04/02/18 04/03/18 13:31 10:35 06:39 WBC RBC Hgb Lymph % (Auto) Nolan % (Auto) Nolan # Seg Neutrophils % Seg Neutrophils # POC ABG pH 7.349 L POC ABG pO2 Sodium 133 L Potassium 3.3 L Carbon Dioxide 20 L BUN 5 L Creatinine 0.5 L 0.5 L Glucose 118 H POC Glucose Calcium Magnesium Salicylates Acetaminophen Allied health notes reviewed: nursing
--- NOTE | 2018-04-07 09:05 | Discharge Summary ---
Providers - Providers Date of Admission: 03/29/18 02:25 Date of discharge: 04/07/18 Attending physician: KARLOS STALEY 03/29/18 02:28 Consult to Physician [CONS] Routine Comment: Answering Service notified @ [id number] Consulting Provider: MOHAN SERRA Physician Instructions: Reason For Exam: drug overdose 04/02/18 14:09 Consult to Mental Health [CONS] Routine Reason For Exam: 1013 Place consult to:: Mental health Notified:: Mignon Phone number called:: [phone] Was contact made?: Yes If yes, spoke with:: Mignon Time called:: 14:09 Primary care physician: BILLING AND ACCOUNTING STAFF ASSISTANT Hospitalization Condition: Good Hospital course: Patient status post suicide attempt with sleeping pills history of depression. Patient admitted has been cleared for discharge medically. Extubated no evidence of infection patient alert oriented labs all within normal limits and stable for discharge. Disposition: [id number] INPT [facility]AB FACILITY - Discharge Diagnoses (1) Overdose Status: Acute Comment: Secondary to sleeping pills has now resolved. (2) Tobacco consumption Status: Acute Comment: Nicotine patch as outpatient smoking cessation. (3) Unresponsive Status: Acute Core Measure Documentation - Palliative Care Palliative Care/ Comfort Measures: Not Applicable - Core Measures Any of the following diagnoses?: none Exam - Constitutional Vitals: Temp Pulse Resp BP Pulse Ox 98.2 F 68 20 119/79 100 04/07/18 00:15 04/07/18 00:15 04/07/18 00:15 04/07/18 00:15 04/07/18 00:15 General appearance: Present: no acute distress, well-nourished - EENT Eyes: Present: PERRL ENT: hearing intact, clear oral mucosa - Neck Neck: Present: supple, normal ROM - Respiratory Respiratory effort: normal Respiratory: bilateral: CTA - Cardiovascular Heart Sounds: Present: S1 & S2. Absent: rub, click - Extremities Extremities: pulses symmetrical, No edema Peripheral Pulses: within normal limits - Abdominal General gastrointestinal: Present: soft, non-tender, non-distended, normal bowel sounds Female genitourinary: Present: normal - Integumentary Integumentary: Present: clear, warm, dry - Musculoskeletal Musculoskeletal: gait normal, strength equal bilaterally - Psychiatric Psychiatric: appropriate mood/affect, intact judgment & insight - Neurologic Neurologic: CNII-XII intact, moves all extremities Plan Activity: no restrictions Weight Bearing Status: Full Weight Bearing Diet: regular Follow up with: PRIMARY CARE, [Primary Care Provider] - 3-5 Days Prescriptions: guaiFENesin [Robitussin] 200 mg PO Q6HR PRN #1 oral.liqd PRN Reason: Cough levoFLOXacin [Levaquin TAB] 750 mg PO Q24HR #7 tablet Sertraline [Zoloft] 25 mg PO QDAY #30 tablet
[2018-04-07] MEDS: LEVAQUIN PO SCH (10:49)
[2018-04-07] MEDS: ZOLOFT PO SCH (10:49)
[2018-04-07] MEDS: PEPCID PO SCH (10:49)
[2018-04-07] MEDS: LOVENOX SUB-Q SCH (10:50)
[2018-04-07] MEDS: SODIUM CHLORIDE FLUSH SYRINGE 10 ML IV SCH (10:50)
--- NOTE | 2018-04-07 11:29 | Progress Note ---
Subjective - Reason for Consult Consult date: 04/07/18 Reason for consult: Psychiatry Follow-up - Chief Complaint Chief complaint: "I have learned my lesson" Patient is a 33-year-old female that presents to the emergency room after a suicide attempt by overdose. Today the patient is calm and cooperative during the assessment. She stated that she has much to live for and look forward to see a therapist and psychiatrist when discharged. Per collateral information from her mother Magui Choe who was at the bedside, she stated that her daughter will move with her. She stated that she will be the patient's support system. She denies any previous suicide attempts by her daughter in the past. She stated that she feel safe for her daughter to be discharged. The patient denies SI/HI's and AVH's. She denies any side effects of her medication. Mental Status Exam - Vital signs Last Vital Signs Temp 98.2 F 04/07/18 00:15 Pulse 68 04/07/18 00:15 Resp 20 04/07/18 00:15 BP 119/79 04/07/18 00:15 Pulse Ox 100 04/07/18 00:15 - Exam Narrative exam: MSE: Appearance: calm, cooperative Behavior: regular eye contact Speech: regular rate and tone Mood: "okay" Affect: congruent to mood Thought Process: logical Thought Content: denies SI/HI's and AVH's Motor Activity: lying in bed Cognition: A/O x 3 Insight: appropriate Judgment: appropriate Assessment and Plan Impression: MDD, Severe Type. Cannabis Use DO. Today the patient is calm and cooperative during the assessment. The patient is no threat to self. DDx: R/O Bipolar DO I. This screening and assessment is based on information collected from the following sources: II. SUICIDE RISK SCREENING (within last 30 days): A.) Suicidal thoughts/behaviors: Yes SUICIDE RISK ASSESSMENT III. FACTORS THAT INCREASE RISK: A.) Demographic and Substance Use Factors: Yes (Marijuana) B.) Current/Recent Factors (within past 3 months): Psychosocial/Environmental Factors: Marital Problems Physical Illness: None Cognitive/Psychological Factors: None C.) Historical Factors: None D.) Diagnostic/Symptom/Treatment Factors: None E.) Acute Risk Factor Severity (DESC; MILD/MOD/SEVERE): Mild Other factors for this individual that increase risk: None IV. FACTORS THAT DECREASE RISK: Resilience/Protective Factors: Patient want to make better a better decisions reference her marriage Other factors for this individual that decrease risk: Patient denies a desire to harm self V. Clinician's Formulation of Risk and Determination of level of Care: This is a 33-year-old white AA female who ingested several sleeping pills in an attempted to kill herself. She stated that she should have handled her situation better. She acknowledged that her actions was not safe. She stated that she will follow-up with outpatient psy services once discharged. Since being hospitalized the patient has consistently denied the desire to harm herself. Additionally, she has become insightful about how to better address her current issues. The patient is not impaired by substance. She is able to take care of her ADLs and is not at imminent risk of harm to self or others. Consequently, it is the opinion of the treatment team that the patient is at low risk of suicide and does not meet criteria to continue an involuntary psychiatric hold. Estimation of Imminent Risk: Low due to the above explanation. Determination of Level of Care based on Suicide Risk: Outpatient follow-up. Narrative description of clinical reasoning. Given the fact that the patient is willing to engage in outpatient psy services care and has a supportive network ( mother), it is reasonable to expect that the patient will seek services. She is regretful of the decision and has several things in his life to look forward to. At this current time, she is not impulsive and does not have any risk factors to increase the likelihood of her impulsive behavior. Therefore, it is reasonable to expect that the patient will engage in outpatient psy services which will reduce further unsafe behaviors. . Plan and Interventions based on Suicide Risk: This patient will likely be stepped down to an outpatient mental health center in the community upon discharge and follow-up within 7 days of her discharge from the hospital. VII. Discharge/After Hours Support Plan: Patient can return back to the ER, call 911 or crisis line if symptoms of depression, anxiety, suicidality return. Recommendation/Plan: Rescind 1013. Continue Zoloft 25 mg PO daily for depression. Discussed possible suicidality/medication induced jennifer with the patient reference Zoloft. Discussed generalized coping skills with the patient. Discussed the importance to abstain from recreational drug use. Safety contract completed with the patient. The patient can follow up with [facility] for outpatient pst services.
--- NOTE | 2018-04-07 11:47 | Progress Note ---
Assessment and Plan Acute respiratory failure, on mechanical ventilator secondary to drug overdose. Drug overdose. Suicide attempt. Leukocytosis. Metabolic acidosis. Hypokalemia. Mild hyponatremia. - continue flutter valve - watch clinically off AB's in short term - increase ambulation (once 1013 status cleared) - continue supplemental oxygen for target O2 Sats > 90% - continue to advance diet as tolerated - continue prn bronchodilators with pulmonary hygiene per RT - PT/OT as tolerated - continue GI & VTE prophylaxis - continue 1013 status - psych evaluation ongoing - flu & pneumovax addressed per protocol - care plan discussed at length with mother and loved ones in room ... re-evaluate in am & prn Subjective Date of service: 04/07/18 Principal diagnosis: Acute Respiratory Failure; Drug OD; Suicide Attempt Interval history: Patient is seen today for: Acute Respiratory Failure; Drug OD; Suicide Attempt Seen and examined at bedside; 24hour events reviewed; nursing and respiratory care staff consulted; no adverse overnight events reported to me; mother in room ; Objective Vital Signs - 12hr 04/07/18 00:15 Temperature 98.2 F Pulse Rate 68 Respiratory 20 Rate Blood Pressure 119/79 [Left] O2 Sat by Pulse 100 Oximetry Constitutional: no acute distress Eyes: non-icteric ENT: oropharynx moist, other (ETT 23 cm DAGO) Neck: supple, no JVD, other (No thyromegaly) Effort: mildly labored Ascultation: Bilateral: clear, diminished breath sounds, rales (base) Percussion: Bilateral: not dull Cardiovascular: regular rate and rhythm, other (No R/M) Gastrointestinal: normoactive bowel sounds, soft, non-tender, non-distended, other (No palpable HSM) Integumentary: normal Extremities: no cyanosis, no edema, pulses normal, no ischemia or petechiae Neurologic: non-focal exam, pupils equal and round, CN II-XII normal, motor strength normal and Psychiatric: depressed CBC and BMP: 04/02/18 10:35 04/03/18 06:39 ABG, PT/INR, D-dimer: ABG POC ABG pH 7.349 (7.35-7.45) L 03/30/18 13:31 POC ABG pCO2 41.3 (35-45) 03/30/18 13:31 POC ABG pO2 84 (80-105) 03/30/18 13:31 POC ABG HCO3 22.7 03/30/18 13:31 POC ABG Total CO2 24 03/30/18 13:31 POC ABG O2 Sat 96 03/30/18 13:31 Abnormal lab findings: Abnormal Labs 03/28/18 03/28/18 03/28/18 22:03 22:03 22:03 WBC 13.5 H RBC Hgb Lymph % (Auto) 9.0 L Pratt % (Auto) Pratt # Seg Neutrophils % 83.4 H Seg Neutrophils # 11.2 H POC ABG pH POC ABG pO2 Sodium 136 L Potassium 3.2 L Carbon Dioxide 20 L BUN Creatinine Glucose POC Glucose Calcium Magnesium Salicylates < 0.3 L Acetaminophen 03/28/18 03/28/18 03/29/18 22:03 23:20 04:59 WBC RBC Hgb Lymph % (Auto) Pratt % (Auto) Pratt # Seg Neutrophils % Seg Neutrophils # POC ABG pH POC ABG pO2 173 H 124 H Sodium Potassium Carbon Dioxide BUN Creatinine Glucose POC Glucose Calcium Magnesium Salicylates Acetaminophen < 5.0 L 03/29/18 03/29/18 03/29/18 16:15 19:31 22:03 WBC RBC Hgb Lymph % (Auto) Pratt % (Auto) Pratt # Seg Neutrophils % Seg Neutrophils # POC ABG pH POC ABG pO2 115 H Sodium Potassium Carbon Dioxide BUN Creatinine Glucose POC Glucose 111 H Calcium Magnesium 1.60 L Salicylates Acetaminophen 03/30/18 03/30/18 03/30/18 05:45 05:45 11:22 WBC RBC 3.51 L Hgb 10.0 L Lymph % (Auto) Pratt % (Auto) 12.8 H Pratt # 1.4 H Seg Neutrophils % Seg Neutrophils # POC ABG pH POC ABG pO2 Sodium Potassium Carbon Dioxide BUN Creatinine Glucose 129 H POC Glucose 122 H Calcium 8.0 L Magnesium 1.60 L Salicylates Acetaminophen 03/30/18 04/02/18 04/03/18 13:31 10:35 06:39 WBC RBC Hgb Lymph % (Auto) Pratt % (Auto) Pratt # Seg Neutrophils % Seg Neutrophils # POC ABG pH 7.349 L POC ABG pO2 Sodium 133 L Potassium 3.3 L Carbon Dioxide 20 L BUN 5 L Creatinine 0.5 L 0.5 L Glucose 118 H POC Glucose Calcium Magnesium Salicylates Acetaminophen Allied health notes reviewed: nursing
[2018-04-07 12:13] VITALS: BP 134/84
== END 2018-04-07 13:50 | DRG 917 ==
LOC: ED 21:24 → EEVIPCON 03-29 02:25 → CC1 03-29 02:25 → UNDOADMIN 03-29 03:30 → CC1 03-29 08:35 → 3A 03-31 18:04
PROVIDERS: ADMIT Internal Medicine; ATTEND Internal Medicine
PROC: 5A1945Z Respiratory Ventilation, 24-96 Consecutive Hours (ICD-10-PCS; principal; 2018-03-28)
PROC: 0BH17EZ Insertion of Endotracheal Airway into Trachea, Via Natural or Artificial Opening (ICD-10-PCS; 2018-03-28)
PROC: 4A033R1 Measurement of Arterial Saturation, Peripheral, Percutaneous Approach (ICD-10-PCS; 2018-03-28)
DX: T39.312A Poisoning by propionic acid derivatives, intentional self-harm, initial encounter (principal); G92 Toxic encephalopathy; J96.01 Acute respiratory failure with hypoxia; J18.9 Pneumonia, unspecified organism; E87.1 Hypo-osmolality and hyponatremia; E87.2 Acidosis; N39.0 Urinary tract infection, site not specified; R65.10 Systemic inflammatory response syndrome (SIRS) of non-infectious origin without acute organ dysfunction; F32.2 Major depressive disorder, single episode, severe without psychotic features; T42.6X2A Poisoning by other antiepileptic and sedative-hypnotic drugs, intentional self-harm, initial encounter; E87.6 Hypokalemia; E83.42 Hypomagnesemia; F12.988 Cannabis use, unspecified with other cannabis-induced disorder; B95.2 Enterococcus as the cause of diseases classified elsewhere; Y92.481 Parking lot as the place of occurrence of the external cause; Z71.6 Tobacco abuse counseling
CPT/HCPCS: 36415; 36600; 70450; 71045; 80048; 80053; 80307; 80320; 81001; 81025; 82803; 82962; 83735; 85025; 85027; 87040; 87070; 87076; 87086; 87186; 87205; 93005; 93010; 94002; 94003; 94760; 96361; 96365; C9113; G0480; J0330; J1650; J1956; J2060; J2250; J2704; J2765; J3010; J3475; J7030